=== PATIENT | female | born 1985 | race Caucasian/White ===

== ENCOUNTER 2017-02-01 18:17 | Emergency (ER) | payer BC, OTHER ==
[~2017-02-01] VITALS: Ht 160 cm; Wt 113.5 kg
[2017-02-01 18:22] VITALS: TEMP 37.1; Ht 160 cm; Wt 113.5 kg
[2017-02-01] MEDS ORDERED: SODIUM CHLORIDE 0.9% 1000ML 1,000 ML IV STA ×2 (18:32→18:33)
[2017-02-01 18:57] LABS: BASO % 0.1 %; BASO ABS # 0.01 K/uL (0-0.2); COMPLETE YES; EOS % 0.1 %; HEMATOCRIT 35.9 % (37-47); IG% 0.2 %; LYMPH % 17.3 %; LYMPH ABS # 1.58 K/uL (1.2-3.4); MEAN CORPUSCULAR HGB CONC 34.5 g/dl (32-36); MEAN PLATELET VOLUME 9.5 fL (7.4-10.4); MONO % 4.9 %; NEUT % 77.4 %; PLATELET COUNT 219 K/uL (130-400); RED BLOOD COUNT 4.43 M/uL (4.2-5.4); WHITE BLOOD COUNT 9.12 K/uL (4.8-10.8)
[2017-02-01] MEDS ORDERED: MONT1TAB3 PO (19:12)
[2017-02-01] MEDS ORDERED: CLR10 PO (19:13)
[2017-02-01] MEDS ORDERED: PRENTAB26 PO (19:14)
[2017-02-01] MEDS ORDERED: DIPH25CA65 PO (19:15)
[2017-02-01 19:32] LABS: BUN/CREATININE RATIO 8.5 (10-20); CALCIUM 8.9 mg/dl (8.5-10.1); CREATININE 0.6 mg/dl (0.60-1.20); POTASSIUM 3.6 mmol/L (3.5-5.1)
[2017-02-01 19:35] LABS: ALB/GLOB RATIO 0.8 (0.9-2)
[2017-02-01 19:47] LABS: URINE APPEARANCE CLOUDY (CLEAR); URINE BILIRUBIN NEG (NEG); URINE COLOR YELLOW; URINE EPITHELIAL CELL AUTO >30 /lpf (0-5); URINE NITRITE NEG (NEG); URINE PH 6.5 (4.5-7.5); URINE SPECIFIC GRAVITY 1.026 (1.000-1.030); UROBILINOGEN NEG (NEG); ZZUR CULT IF INDIC CLEAN CATCH YES
[2017-02-01 19:49] LABS: MANUAL MICROSCOPIC REQUIRED? NO; REVIEW REQ? NO
--- NOTE | 2017-02-01 20:32 | EMERGENCY ROOM VISIT NOTE ---
History Report prepared by [place]an: Stephie Patel Under the Supervision of: Dr. Belem Crain D.O. First contact with patient: 18:23 Chief Complaint: NAUSEA Stated Complaint: NAUSEATED, POSS. DEHYDRATION, 13 WKS History of Present Illness The patient is a 31 year old female who presents to the Emergency Room with complaints of worsening nausea symptoms that started over a week ago. The patient states that she is 13 weeks in to her 3rd . She notes that over the last 2-3 weeks she has been vomiting a lot more than normal. The patient reports that she breaks out into a sweat when she is vomiting. The patient states that she has been unable to "keep things down" over the last couple of days. She notes that she was nauseous with her first two pregnancies but not similar to what she is experiencing now. She also reports that she has been having diarrhea and abdominal cramping over the past week. The patient denies having a fever, cough, chills, or vaginal bleeding or discharge. Source of History: patient Onset: over a week ago Position: other (global) Symptom Intensity: mild Quality: other (nausea) Timing: worsening Associated Symptoms: + abdominal pain, + diarrhea, No fevers, No chills, No cough Review of Systems Pt denies headache, change in vision, fevers, chest pain, shortness of breath, pain with urination, and melena. Past Medical & Surgical Medical Problems: (1) related nausea and vomiting, antepartum Social History Smoking Status: Never Smoker Smokeless Tobacco Use: No Alcohol Use: none Drug Use: none Marital Status: Housing Status: lives with family Occupation Status: employed Current/Historical Medications Scheduled Doxylamine-Pyridoxine (Diclegis), 2 TABS PO HS Loratadine (Claritin), 10 MG PO DAILY Montelukast Sodium (Singulair), 10 MG PO DAILY Multivit/Min/Iron/Fol Ac/Pren ( Vitamin), 1 TAB PO DAILY Scheduled PRN Diphenhydramine Hcl (Benadryl Allergy), 25 MG PO DAILY PRN for ALLERGIC REACTION Allergies Coded Allergies: Potassium (Verified Allergy, Mild, RASH, 02/01/17) Uncoded Allergies: FLU SHOT (Allergy, Mild, RASH, 02/01/17) PENICILLIN (Allergy, Mild, RASH, 02/01/17) Physical Exam Vital Signs Date Time Temp Pulse Resp B/P (MAP) Pulse Ox O2 Delivery O2 Flow Rate FiO2 02/01/17 21:33 97 20 132/70 96 02/01/17 19:52 85 17 132/84 98 Room Air 02/01/17 18:22 37.1 86 18 158/90 98 Room Air Physical Exam GENERAL: alert, well appearing, well nourished, no distress, non-toxic EYE EXAM: normal conjunctiva, PERRL and EOM's grossly intact OROPHARYNX: no exudate, no erythema, lips, buccal mucosa, and tongue normal and mucous membranes are moist NECK: supple, no nuchal rigidity, no adenopathy, non-tender LUNGS: Clear to auscultation. Normal chest wall mechanics HEART: no murmurs, S1 normal and S2 normal ABDOMEN: abdomen soft, non-tender, normo-active bowel sounds, no masses, no rebound or guarding. Fundus not palpable. BACK: Back is symmetrical on inspection and there is no deformity, no midline tenderness, no CVA tenderness. SKIN: no rashes and no bruising UPPER EXTREMITIES: upper extremities are grossly normal. LOWER EXTREMITIES: No pitting edema. NEURO EXAM: Normal sensorium, cranial nerves II-XII [grossly] intact, normal speech, no [gross] weakness of arms, no [gross] weakness of legs. [Gross sensation intact.] Medical Decision & Procedures Laboratory Results 02/01/17 18:41 Red Blood Count 4.43, Mean Corpuscular Volume 81.0, Mean Corpuscular Hemoglobin 28.0, Mean Corpuscular Hemoglobin Concent 34.5, Mean Platelet Volume 9.5, Neutrophils (%) (Auto) 77.4, Lymphocytes (%) (Auto) 17.3, Monocytes (%) (Auto) 4.9, Eosinophils (%) (Auto) 0.1, Basophils (%) (Auto) 0.1, Neutrophils # (Auto) 7.05, Lymphocytes # (Auto) 1.58, Monocytes # (Auto) 0.45, Eosinophils # (Auto) 0.01, Basophils # (Auto) 0.01 02/01/17 18:41 Test 02/01/17 18:41 02/01/17 19:35 White Blood Count 9.12 K/uL (4.8-10.8) Red Blood Count 4.43 M/uL (4.2-5.4) Hemoglobin 12.4 g/dL (12.0-16.0) Hematocrit 35.9 % (37-47) Mean Corpuscular Volume 81.0 fL (80-100) Mean Corpuscular Hemoglobin 28.0 pg (25-34) Mean Corpuscular Hemoglobin Concent 34.5 g/dl (32-36) Platelet Count 219 K/uL (130-400) Mean Platelet Volume 9.5 fL (7.4-10.4) Neutrophils (%) (Auto) 77.4 % Lymphocytes (%) (Auto) 17.3 % Monocytes (%) (Auto) 4.9 % Eosinophils (%) (Auto) 0.1 % Basophils (%) (Auto) 0.1 % Neutrophils # (Auto) 7.05 K/uL (1.4-6.5) Lymphocytes # (Auto) 1.58 K/uL (1.2-3.4) Monocytes # (Auto) 0.45 K/uL (0.11-0.59) Eosinophils # (Auto) 0.01 K/uL (0-0.5) Basophils # (Auto) 0.01 K/uL (0-0.2) RDW Standard Deviation 39.1 fL (36.4-46.3) RDW Coefficient of Variation 13.2 % (11.5-14.5) Immature Granulocyte % (Auto) 0.2 % Immature Granulocyte # (Auto) 0.02 K/uL (0.00-0.02) Anion Gap 11.0 mmol/L (3-11) Est Creatinine Clear Calc Drug Dose 167.8 ml/min Estimated GFR () 142.8 Estimated GFR (Non- 123.2 BUN/Creatinine Ratio 8.5 (10-20) Calcium Level 8.9 mg/dl (8.5-10.1) Total Bilirubin 0.4 mg/dl (0.2-1) Aspartate Amino Transf (AST/SGOT) 15 U/L (15-37) Alanine Aminotransferase (ALT/SGPT) 21 U/L (12-78) Alkaline Phosphatase 52 U/L (45-117) Total Protein 7.2 gm/dl (6.4-8.2) Albumin 3.3 gm/dl (3.4-5.0) Globulin 3.9 gm/dl (2.5-4.0) Albumin/Globulin Ratio 0.8 (0.9-2) Urine Color YELLOW Urine Appearance CLOUDY (CLEAR) Urine pH 6.5 (4.5-7.5) Urine Specific [place] 1.026 (1.000-1.030) Urine Protein TRACE (NEG) Urine Glucose (UA) NEG (NEG) Urine Ketones 4+ (NEG) Urine Occult Blood NEG (NEG) Urine Nitrite NEG (NEG) Urine Bilirubin NEG (NEG) Urine Urobilinogen NEG (NEG) Urine Leukocyte Esterase TRACE (NEG) Urine WBC (Auto) 5-10 /hpf (0-5) Urine RBC (Auto) 0-4 /hpf (0-4) Urine Hyaline Casts (Auto) 5-10 /lpf (0-5) Urine Epithelial Cells (Auto) >30 /lpf (0-5) Urine Bacteria (Auto) 1+ (NEG) Laboratory results per my review. Medications Administered Medications (Trade) Dose Ordered Sig/Noel Route Start Time Stop Time Status Last Admin Dose Admin Sodium Chloride 1,000 ml @ 999 mls/hr Q1H1M STAT IV 02/01/17 18:32 02/01/17 19:32 DC 02/01/17 19:04 999 MLS/HR Sodium Chloride 1,000 ml @ 999 mls/hr Q1H1M STAT IV 02/01/17 18:33 02/01/17 19:33 DC 02/01/17 19:04 999 MLS/HR Ondansetron HCl (Zofran Inj) 4 mg NOW STAT IV 02/01/17 21:06 02/01/17 21:07 DC 02/01/17 21:24 4 MG ED Course 182: The patient was evaluated in room C7. A complete history and physical exam was performed. 183: Sodium Chloride 1000 ml @ 999 mls/hr IV. 1832: Sodium Chloride 1000 ml @ 999 mls/hr IV. 1932: I performed bedside ultrasound for hearts. heart rate was 158. Single IUP. Positive movement. 2020: I reevaluated the patient at bedside and she is resting comfortably. She is hungry so we will PO challenge. 2106: The patient tolerated PO well. 2139: Upon reevaluation, the patient is feeling better. I discussed the findings and the treatment plan with the patient. She verbalizes agreement and understanding. She will be discharged home. Medical Decision Ddx: dehydration, viral syndrome, hyperemesis gravidarum, first trimester nausea & vomiting. Patient markedly improved here following IV fluids and tolerating by mouth. No evidence of occult infectious etiology. Patient's normal heart some movement on bedside ultrasound. Discussed close follow-up with [facility]. Patient written for diplegia's as a precaution. Discussed symptoms to watch and return for, she verbalized understanding was agreeable with plan. Did not feel patient warranted additional bedside imaging at this time. Presentation and exam is not strongly suggestive of biliary colic, GI bleed, perforation, diverticulitis, appendicitis, colitis, bowel obstruction. Medication Reconcilliation Current Medication List: was personally reviewed by me Blood Pressure Screening Patient's blood pressure: Normal blood pressure Impression Primary Impression: Nausea & vomiting Additional Impression: Scribe Attestation The scribe's documentation has been prepared under my direction and personally reviewed by me in its entirety. I confirm that the note above accurately reflects all work, treatment, procedures, and medical decision making performed by me. Departure Information Dispostion Home / Self-Care Prescriptions Doxylamine-Pyridoxine (DICLEGIS) 1 Tab Tab 2 TABS PO HS for Nausea, #30 TAB Prov: Belem Crain, DO 02/01/17 Referrals No Doctor, Assigned (PCP) Patient Instructions My [facility] Additional Instructions Please follow up with [facility] as a precaution. You may take for nausea medications as provided. Please try to sip clear liquids at frequent intervals to stay well-hydrated and eat small meals at frequent intervals until you're appetite returns. If you develop abdominal pain or increased cramping, develop vaginal discharge or bleeding, develop fevers or chills, cough, trouble breathing, dizziness, or you have any other new concerns, please return the emergency room. Problem Qualifiers Primary Impression: Nausea & vomiting Vomiting type: unspecified Vomiting Intractability: non-intractable Qualified Codes: R11.2 - Nausea with vomiting, unspecified Additional Impression: Weeks of gestation: 13 weeks Qualified Codes: Z3A.13 - 13 weeks gestation of
[2017-02-01] MEDS ORDERED: DOXY30TA PO (21:01)
[2017-02-01] MEDS ORDERED: ONDANSETRON INJ 2 MG/ML 2 ML VIAL IV STA (21:06)
[2017-02-01 21:33] VITALS: BP 132/70; PULSE 97; O2SAT 96
== END 2017-02-01 21:35 | disposition home or self-care (01) ==
LOC: C.EDB 18:19 → C.EDC 21:35
DX: R11.2 Nausea with vomiting, unspecified (principal); Z33.1 Pregnant state, incidental; R10.9 Unspecified abdominal pain; R19.7 Diarrhea, unspecified

== ENCOUNTER → 2017-03-30 | Outpatient (CLI) | payer BC, OTHER ==
[~2017-03-30] MED LIST: CLR10 PO; DIPH25CA65 PO; DOXY30TA PO; MONT1TAB3 PO; PRENTAB26 PO
--- NOTE | 2017-04-02 06:58 | CODING QUERY NO DIAGNOSIS ---
TREATMENT RENDERED WITHOUT A DIAGNOSIS To promote full compliance with coding requirements relating to patient care, physician participation is requested in all cases of rhinologist uncertainty. Please assist us with providing a diagnosis/symptom for the test(s) below: A diagnosis/symptom was not documented on your Order. A valid diagnosis/symptom is required to bill all insurances. Please remember that we are unable to code a diagnosis of rule out, probable, possible, questionable, or suspected. Tests that require a diagnosis: * Echocardiogram DIAGNOSIS: Provider Signature: Date: Thank you Erica Zuñiga [employer] Once completed, please kindly fax back to [phone] For questions please call [phone]
== END | disposition home or self-care (01) ==
LOC: C.CPL 14:20
PROVIDERS: ATTEND Obstetrics & Gynecology Maternal & Fetal Medicine
DX: O28.3 Abnormal ultrasonic finding on antenatal screening of mother (principal); Z3A.21 21 weeks gestation of pregnancy

== ENCOUNTER 2017-07-19 11:31 | Outpatient (CLI) | payer BC, OTHER ==
[~2017-07-19] VITALS: Ht 161.3 cm; Wt 118.2 kg
[2017-07-19] MEDS ORDERED: ONDANSETRON 4 MG TAB PO PRN (12:15)
[2017-07-19] MEDS ORDERED: ACETAMINOPHEN 325 MG TAB PO PRN (12:15)
[2017-07-19 12:24] LABS: BASO % 0.1 %; BASO ABS # 0.01 K/uL (0-0.2); EOS % 0.7 %; EOS ABS # 0.06 K/uL (0-0.5); HEMATOCRIT 31.9 % (37-47); HEMOGLOBIN 10.9 g/dL (12.0-16.0); IG# 0.05 K/uL (0.00-0.02); LYMPH % 17.4 %; LYMPH ABS # 1.55 K/uL (1.2-3.4); MEAN CORPUSCULAR HGB CONC 34.2 g/dl (32-36); MEAN PLATELET VOLUME 9.8 fL (7.4-10.4); MONO % 6.5 %; MONO ABS # 0.58 K/uL (0.11-0.59); NEUT % 74.7 %; NEUT ABS # 6.67 K/uL (1.4-6.5); PLATELET COUNT 227 K/uL (130-400); RED CELL DISTRIBUTION WIDTH CV 13.9 % (11.5-14.5); RED CELL DISTRIBUTION WIDTH SD 39.5 fL (36.4-46.3); WHITE BLOOD COUNT 8.92 K/uL (4.8-10.8)
[2017-07-19] MEDS ORDERED: FERR1TAB23 (12:36)
[2017-07-19] MEDS ORDERED: MOME1AER5 INH (12:36)
[2017-07-19] MEDS ORDERED: VNTHFA/IN INH (12:38)
[2017-07-19 12:41] VITALS: Ht 161.3 cm; Wt 118.2 kg
[2017-07-19 13:27] LABS: ALBUMIN 2.5 gm/dl (3.4-5.0); CALCIUM 8.5 mg/dl (8.5-10.1); CREATININE 0.71 mg/dl (0.60-1.20); POTASSIUM 3.6 mmol/L (3.5-5.1); TOTAL PROTEIN 6.3 gm/dl (6.4-8.2)
--- NOTE | 2017-07-19 16:12 | Discharge Instructions ---
Discharge Instructions Date of Service Jul 19, 2017. Admission Reason for Admission: R/O Pih Discharge Discharge Diagnosis / Problem: Gestational Hypertenstion Discharge Goals Goal(s): Continuing OB care Activity Recommendations Activity Limitations: as noted below SPECIAL CARE INSTRUCTIONS: Call Doctor if: * Regular contractions every 5 minutes or greater than contractions in one hour. * Bleeding * Water breaks or is leaking * Decreased movement * Fever >100.4 degrees F * Pain not relieved by routine measures or pain medication ordered. FOLLOW UP VISIT: Return to Labor and Delivery on for /call for appointment time . Follow-up Visit with: When: . Current Hospital Diet Patient's current hospital diet: Discharge Diet Recommended Diet: Regular Diet Pending Studies Studies pending at discharge: yes List of pending studies: 24 hour urine collection Work Instructions Return To Work: after follow-up (Recommended to be off work till delivery and 6 -8 weeks depending of tyep of delivery) Medical Emergencies . Who to Call and When: Medical Emergencies: If at any time you feel your situation is an emergency, please call 911 immediately. . Non-Emergent Contact Non-Emergency issues call your: Specialist Call Non-Emergent contact if: you have a fever, temperature is above 100.5, your pain is not controlled . . "Provider Documentation" section prepared by Jhony Cabello. .
== END 2017-07-19 16:45 | disposition home or self-care (01) ==
LOC: C.OPB 11:31 → C.LD 11:32 → C.OPB 16:45
PROVIDERS: ATTEND Obstetrics & Gynecology
DX: O13.3 Gestational [pregnancy-induced] hypertension without significant proteinuria, third trimester (principal); O99.213 Obesity complicating pregnancy, third trimester; E66.9 Obesity, unspecified; Z3A.37 37 weeks gestation of pregnancy

== ENCOUNTER 2017-07-26 11:13 | Outpatient (CLI) | payer BC, OTHER ==
[~2017-07-26] VITALS: Ht 161.3 cm; Wt 118.6 kg
[~2017-07-26 11:13] MED LIST changes: -CLR10 PO; -DIPH25CA65 PO; -DOXY30TA PO; +FERR1TAB23; +MOME1AER5 INH; +VNTHFA/IN INH
[2017-07-26 11:40] VITALS: Ht 161.3 cm; Wt 118.6 kg
[2017-07-26] MEDS ORDERED: PEDICHW50 PO (11:44)
--- NOTE | 2017-07-26 13:30 | Progress Note ---
Progress Note Date of Service Jul 26, 2017. Progress Note Outpatient Note 32 F P2002 at 38.5 weeks seen from office for elevated BP. BP 1146/71. trace protein. FHT Cat 1. Will bring in for induction of labor for Class 3 obesity and gestational hypertension .
== END 2017-07-26 13:30 | disposition home or self-care (01) ==
LOC: C.OPB 11:13 → C.LD 11:14 → C.OPB 13:30
PROVIDERS: ATTEND Obstetrics & Gynecology
DX: O13.2 Gestational [pregnancy-induced] hypertension without significant proteinuria, second trimester (principal); O99.213 Obesity complicating pregnancy, third trimester; E66.9 Obesity, unspecified; Z3A.38 38 weeks gestation of pregnancy; Z68.42 Body mass index [BMI] 45.0-49.9, adult

== ENCOUNTER 2017-07-29 06:28 | Inpatient (IN) | payer BC, OTHER ==
[~2017-07-29] VITALS: Ht 160 cm; Wt 118.2 kg
[~2017-07-29 06:28] MED LIST changes: +PEDICHW50 PO; -PRENTAB26 PO
[2017-07-29] MEDS ORDERED: LACTATED RINGER'S 1000ML 1,000 ML IV PRN (08:04)
[2017-07-29] MEDS ORDERED: ONDANSETRON INJ 2 MG/ML 2 ML VIAL IV PRN ×2 (08:15→23:15)
[2017-07-29] MEDS ORDERED: MISOPROSTOL 25 MCG TAB PV ONE ×2 (08:15→13:00)
[2017-07-29 08:25] VITALS: Ht 160 cm; Wt 118.2 kg
[2017-07-29 08:36] LABS: HEMATOCRIT 30.7 % (37-47); HEMOGLOBIN 10.2 g/dL (12.0-16.0); MEAN CELL VOLUME 78.7 fL (80-100); MEAN CORPUSCULAR HEMOGLOBIN 26.2 pg (25-34); MEAN CORPUSCULAR HGB CONC 33.2 g/dl (32-36); MEAN PLATELET VOLUME 9.7 fL (7.4-10.4); PLATELET COUNT 230 K/uL (130-400); RED CELL DISTRIBUTION WIDTH CV 14.1 % (11.5-14.5); RED CELL DISTRIBUTION WIDTH SD 40.2 fL (36.4-46.3); WHITE BLOOD COUNT 7.77 K/uL (4.8-10.8)
[2017-07-29] MEDS ORDERED: VANCOMYCIN IV 1,000 MG in SODIUM CHLORIDE 0.9% 250ML 250 ML IV ONE (09:00)
[2017-07-29] MEDS ORDERED: VANCOMYCIN CONSULT ACTIVE PRN (09:00)
[2017-07-29] MEDS ORDERED: VANCOMYCIN IV 1,000 MG in SODIUM CHLORIDE 0.9% 250ML 250 ML IV PRN (09:15)
[2017-07-29] MEDS: LACTATED RINGER'S 1000ML 1,000 ML IV SCH (09:31)
[2017-07-29] MEDS ORDERED: MISOPROSTOL 25 MCG TAB ONE (13:00)
[2017-07-29] MEDS ORDERED: LACTATED RINGER'S 1000ML 500 ML IV PRN ×2 (17:11→23:11)
[2017-07-29] MEDS ORDERED: OXYTOCIN 30 UNITS/500ML NSS IV PRN (17:15)
[2017-07-29] MEDS ORDERED: ACETAMINOPHEN 500 MG TAB PO ONE (19:39)
[2017-07-29] MEDS ORDERED: ACETAMINOPHEN 500 MG TAB PO PRN (19:45)
[2017-07-29] MEDS ORDERED: BUPIVACAINE 0.25% 30 ML VIAL ONE (22:27)
[2017-07-29] MEDS ORDERED: EpHEDrine SULFATE INJ 50 MG/ML AMP ONE (22:27)
[2017-07-29] MEDS ORDERED: FENTANYL 2MCG/ML ROPIV 1.25MG/ML 100ML BAG EPI ONE (22:28)
[2017-07-29] MEDS ORDERED: FENTANYL CITRATE INJ 50 MCG/1 ML 2 ML VIAL ONE (22:28)
[2017-07-29] MEDS ORDERED: NALOXONE HCL INJ 1 MG in SODIUM CHLORIDE 0.9% 1000ML 1,000 ML IV PRN (23:11)
[2017-07-29] MEDS ORDERED: EpHEDrine SULFATE INJ 50 MG/ML AMP IV PRN (23:15)
[2017-07-29] MEDS ORDERED: FENTANYL 2MCG/ML ROPIV 1.25MG/ML 100ML BAG EPI PRN (23:15)
[2017-07-29] MEDS ORDERED: NALOXONE HCL INJ 0.4 MG/1 ML VIAL/CARP IV PRN (23:15)
[2017-07-29] MEDS ORDERED: DiphenhydrAMINE HCL 50 MG/ML VIAL IV PRN (23:15)
[2017-07-29] MEDS ORDERED: NALBUPHINE HCL INJ 10 MG/ML AMP IV PRN (23:15)
[2017-07-30] MEDS: LACTATED RINGER'S 1000ML 1,000 ML IV SCH (00:23)
--- NOTE | 2017-07-30 02:41 | Anesthesiology Progress Note ---
Anesthesia Progress Note Date of Service Jul 30, 2017. Progress Notes Pt stated having L sided discomfort with contractions. I pulled the epidural catheter out by 1 cm and then bolused the epidural with 5 mL of 0.125% bupivacaine. Pt's vital signs were stable and FHTs were stable throughout. Afterwards, the pt stated having much improvement in labor pains with just some discomfort near her L groin.
[2017-07-30] MEDS ORDERED: LACTATED RINGER'S 1000ML 1,000 ML IV SCH (03:56)
[2017-07-30] MEDS ORDERED: OXYTOCIN 30 UNITS/500ML NSS IV PRN (04:00)
[2017-07-30] MEDS ORDERED: HYDROCORTISONE ACETATE 25 MG SUPP PR PRN (04:00)
[2017-07-30] MEDS ORDERED: ACETAMINOPHEN 325 MG TAB PO PRN (04:00)
[2017-07-30] MEDS ORDERED: SUPERCREAM 0.870 % 15GM JAR EXT PRN (04:00)
[2017-07-30] MEDS ORDERED: LANOLIN OINT EXT PRN (04:00)
[2017-07-30] MEDS ORDERED: MEASLES, MUMPS & RUBELLA VIRUS VIAL SQ. ONE (04:00)
[2017-07-30] MEDS ORDERED: BENZOCAINE 20% AER SPR 82.5 GM CAN EXT PRN (04:00)
[2017-07-30] MEDS ORDERED: DIPHTHERIA/TETANUS/PERTUSSIS 0.5 ML SYR/VIAL IM. ONE (04:00)
[2017-07-30] MEDS ORDERED: ACETAMINOPHEN/CODEINE 300/30MG TAB PO PRN (04:00)
--- NOTE | 2017-07-30 04:02 | Vaginal Delivery Summary ---
Vaginal Delivery Summary Delivery Note live female over intact perineum JOHN with nuchal cord x 1. Apgars 7/8 weight pending. Delayed cord clamping followed by cord blood collection. No tears. EBL 200 ml. Final sponge and instrument count are correct. Mom and baby stable.
--- NOTE | 2017-07-30 06:59 | Anesthesia Procedure Note ---
Anesthesia Epidural Removal Nt Date & Time Jul 30, 2017 at 06:59 Vital Signs Pain Intensity: 7.0 Notes Mental Status: alert / awake / arousable, participated in evaluation Nausea / Vomiting: adequately controlled Pain: adequately controlled Airway Patency, RR, SpO2: stable & adequate BP & HR: stable & adequate Hydration State: stable & adequate Neuraxial Anesthesia: was administered, sensory block is resolving Anesthetic Complications: no major complications apparent, pt satisfied with anesthetic care Epidural: removed without complications, with tip intact
[2017-07-30 07:05] VITALS: BP 133/78; PULSE 76; TEMP 37.2
[2017-07-30] MEDS: PRENATAL VITAMIN TAB PO SCH (07:38)
[2017-07-30] MEDS: FERROUS SULFATE 325 MG TAB PO SCH (07:38)
[2017-07-30] MEDS: IBUPROFEN 600 MG TAB PO PRN ×2 (10:55→15:02)
[2017-07-30 11:30] VITALS: BP 144/88; PULSE 75; TEMP 36.8
[2017-07-30 15:00] VITALS: BP 126/79; PULSE 74; TEMP 36.8
[2017-07-30] MEDS ORDERED: SODIUM CHLORIDE 0.65% NA SOLN 45 ML (OCEAN) ONE (15:09)
[2017-07-30 19:50] VITALS: BP 145/85; PULSE 60; TEMP 36.9; O2SAT 96
[2017-07-31] VITALS: BP 135/83; PULSE 66; TEMP 36.5
[2017-07-31 03:50] VITALS: BP 125/76; PULSE 60; TEMP 36.5
[2017-07-31 06:24] LABS: HEMATOCRIT 28.1 % (37-47); HEMOGLOBIN 9.2 g/dL (12.0-16.0)
[2017-07-31 07:45] VITALS: BP 138/87; PULSE 65; TEMP 36.7; O2SAT 97
[2017-07-31] MEDS: FERROUS SULFATE 325 MG TAB PO SCH (08:29)
[2017-07-31] MEDS: PRENATAL VITAMIN TAB PO SCH (08:29)
[2017-07-31] MEDS: IBUPROFEN 600 MG TAB PO PRN ×3 (08:29→22:13)
--- NOTE | 2017-07-31 09:16 | OB/GYN Progress Note ---
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 Subjective conversation w/ patient, physical exam Ambulation: ambulating normally Voiding: no voiding problems Passing Gas: Yes Diet Tolerance: Regular Diet Lochia: Small Feeding Type: Breast Feeding Pain: 04/28 Notes: Doing well, no concerns. Pain well controlled. Tolerating regular diet. Ambulating without difficulty. Lochia decreasing. Objective Vital Signs Date Time Temp Pulse Resp B/P (MAP) Pulse Ox O2 Delivery O2 Flow Rate FiO2 07/31/17 03:50 36.5 60 16 125/76 (92) Room Air 07/31/17 00:00 Room Air 07/31/17 00:00 36.5 66 16 135/83 (100) Room Air 07/30/17 19:50 36.9 60 20 145/85 (105) 96 Room Air 07/30/17 15:00 36.8 74 20 126/79 (95) 07/30/17 11:30 36.8 75 20 144/88 (106) Physical Exam General Appearance: WELL-APPEARING Respiratory/Chest: chest non-tender, lungs clear Cardiovascular: regular rate, rhythm Abdomen: normal bowel sounds, soft Fundus: Firm Extremities: normal range of motion, non-tender, no calf tenderness Laboratory Results Last 24 Hours Test 07/31/17 06:08 Hemoglobin 9.2 g/dL Hematocrit 28.1 % Assessment and Plan Post- Day Number: 1 Continue Routine Care: -Continue routine care -Anticipate D/C home tomorrow
[2017-07-31 16:28] VITALS: BP 136/81; PULSE 63; TEMP 36.6; O2SAT 96
[2017-07-31] MEDS ORDERED: BISACODYL 5 MG TABEC PO SCH (20:00)
[2017-07-31 23:40] VITALS: BP 125/74; PULSE 63; TEMP 36.8; O2SAT 97
[2017-08-01] MEDS: IBUPROFEN 600 MG TAB PO PRN (06:29)
[2017-08-01] MEDS ORDERED: BISACODYL 10 MG SUPP PR PRN (07:00)
[2017-08-01 08:00] VITALS: BP 134/78; PULSE 65; TEMP 36.8; O2SAT 94
[2017-08-01] MEDS: FERROUS SULFATE 325 MG TAB PO SCH (08:16)
[2017-08-01] MEDS: PRENATAL VITAMIN TAB PO SCH (08:16)
--- NOTE | 2017-08-01 10:45 | Discharge Instructions ---
Discharge Instructions Date of Service Aug 01, 2017. Admission Reason for Admission: Induction Discharge Discharge Diagnosis / Problem: Vaginal delivery Discharge Goals Goal(s): Routine recovery after delivery Medications Continue Dispensed Medications: supercream, dermaplast, tucks, lansinoh Activity Recommendations Activity Limitations: per Instructions/Follow-up section . Instructions / Follow-Up Instructions / Follow-Up ACTIVITY RECOMMENDATIONS: * Gradual return to full activity over the next 2-3 weeks. * No lifting - nothing heavier than baby over the next 2-3 weeks. * Do not engage in vigorous exercise, sexual activity or sports until cleared by your physician. * Do not drive or operate any motorized equipment until cleared by your physician. * You may shower/bathe daily. BREAST CARE: If you are not breast feeding: * Wear a supportive bra 24 hours a day for one to two weeks. * Avoid stimulating your breasts and nipples as much as possible during the first few weeks after delivery. * When taking a shower, have the warm water hit your back, not breasts. * When your breasts feel full, apply ice packs. Usually three to four times a day helps ease the discomfort. * Take a mild pain medication (Tylenol/Motrin) when you are uncomfortable. If breast feeding: * Use breast milk to lubricate nipples. Lansinoh cream may be used for sore nipples. You do not need to remove cream prior to breast feeding. If using a different brand of cream, check the label for directions regarding removal of cream prior to nursing. * Wear a supportive bra. * If having problems with breasts or breast feeding, call a mental health consultant or your health care provider. EPISIOTOMY CARE: After delivery, if you have an episiotomy (stitches), the following steps will ease discomfort and aid healing. * For the first 24 hours after delivery, place ice packs next to your episiotomy to help reduce swelling. * After the first 24 hour-period, sitz baths, either portable or in the tub, are suggested. A shower with a shower arm sprayed over the episiotomy may be comforting. * Diane care should be done after each voiding and bowel movement. Squirt warm water from a plastic bottle over the perineum (region of the body between the anus and urinary opening) and pat dry. * Use Dermoplast to ease discomfort. Shake container. [place] directly over the episiotomy. * Place a Tucks on a clean sanitary pad next to your episiotomy. OVER THE COUNTER MEDICATION: * For discomfort or pain, you may use Acetaminophen (Tylenol), Ibuprofen (Advil ), or Naproxen (Aleve) following the package directions. * For constipation you may use Colace following the package directions. SPECIAL CARE INSTRUCTIONS: When you are discharged from the hospital, it is important for you to follow the instructions listed below: * During the first week at home, you should be able to care for yourself and your baby. In addition, the usual light household activities are encouraged. * Limit your activities to the way you feel. Do not try to clean the house or move furniture. Be sensible. * If you actively engage in sports and have done so up until the time of your delivery, you may resume these activities as soon as you feel able. This may take up to one month or even longer. Use good judgment. * Continue to take your vitamins for at least six weeks after the of your baby. * Your diet need not be limited unless you were on a special diet before your delivery. Breast-feeding mothers need around 2500 calories per day and at least 64-80 ounces of fluid per day (8 to 10 glasses). * You should eat foods from the four major food groups. Crash diets or fad diets are to be avoided. Eating lean meats, fresh fruits and vegetables, low-fat dairy products, high fiber foods and a regular exercise program, will help you get back to your pre- weight without putting your health at risk. * Constipation is sometimes a problem after delivery. Take a mild laxative as needed. If breast feeding, Milk of Magnesia is acceptable to use. You may use a suppository or Fleets enema if no episiotomy. * A daily shower or tub bath is suggested. Be sure to thoroughly and gently dry the perineum. * A bloody vaginal discharge will usually continue until around four weeks post . A small amount of bleeding may continue for as long as six weeks. Vaginal discharge changes from the bright red bleeding after delivery to pink then brownish and finally yellowish-pink before becoming white and disappearing. * Bleeding may increase with activity. Your first period may come in 4-8 weeks. If you are breast feeding, your period may be delayed even longer. * [place] (sex) can begin whenever both you and your partner feel comfortable and do not have any form of genital infection. It is recommended that you wait until after your return appointment and discuss with your physician. If you have questions, please talk to your health care practitioner. A condom should be used to prevent infection and . * Foreplay, gentle intercourse and lubrication is very important the first several times to prevent pain. A water-based lubricant such as K-Y jelly or Astroglide may be used. * Tampons may be used six weeks after delivery. * Douching should be avoided for 6 weeks after delivery. * If you have RH negative blood and your baby is RH positive, you will receive RHOGAM by injection prior to discharge. The nurse will give you a card to keep with you that has the date and place that you received RHOGAM after delivery. * During your care, you had a Rubella screen done to check for the presence of rubella antibodies in your blood. If your test was negative, you will receive a Rubella vaccine prior to discharge. This vaccine may cause a fever, soreness at the injection site and flu-like symptoms. If these symptoms persist, notify your health care practitioner. is not advised for three months after a Rubella vaccine. There is a higher chance of having a baby with defects if conceived within three months of getting the vaccine. * If you were discharged 24 hours from delivery or before 48 hours: Visiting nurses will come to your home 48 hours after discharge to assess you and your baby. The visiting nurse will meet with you while you are in the hospital to arrange a time and get directions to your home. * Verbalizes understanding of car seat law as reviewed with patient nursing. * Car Seat hand-out given and reviewed with patient by nursing. * Shaken baby information reviewed with patient by nursing. Call you doctor if: * Heavy bleeding (saturating several pads an hour) or passing clots the size of your fist. * A fever >101 degrees F (38.3 degrees C) on two occasions four hours apart and/or chills. * Unusual pain in the pelvic or vaginal areas. * "Baby Blues" lasting longer than two weeks. If you have any questions or concerns, call your health care practitioner at . FOLLOW-UP VISIT: * Please call the office at to schedule a 6 week examination. It is important you keep this appointment. * It is important for you to make arrangements for either yearly or twice yearly check-ups thereafter. Current Hospital Diet Patient's current hospital diet: Regular OB Diet Discharge Diet Recommended Diet: Regular OB Diet Pending Studies Studies pending at discharge: no Medical Emergencies . Who to Call and When: Medical Emergencies: If at any time you feel your situation is an emergency, please call 911 immediately. . Non-Emergent Contact Non-Emergency issues call your: Primary Care Provider, Metals Sales Representative . . "Provider Documentation" section prepared by Sarabjit Staples. .
--- NOTE | 2017-08-01 10:46 | OB/GYN Progress Note ---
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 Subjective conversation w/ patient, physical exam Ambulation: ambulating normally Voiding: no voiding problems Passing Gas: Yes Diet Tolerance: Regular Diet Lochia: Small Feeding Type: Breast Feeding Pain: 2/10 Notes: Doing well, no concerns. Would like to go home today. Objective Vital Signs Date Time Temp Pulse Resp B/P (MAP) Pulse Ox O2 Delivery O2 Flow Rate FiO2 08/01/17 08:00 36.8 65 16 134/78 (96) 94 Room Air 08/01/17 08:00 94 Room Air 07/31/17 23:40 97 Room Air 07/31/17 23:40 36.8 63 20 125/74 (91) 97 Room Air 07/31/17 16:28 36.6 63 20 136/81 (99) 96 Room Air 07/31/17 16:28 96 Room Air Physical Exam General Appearance: WELL-APPEARING Respiratory/Chest: chest non-tender, lungs clear Cardiovascular: regular rate, rhythm Abdomen: normal bowel sounds, soft Fundus: Firm Extremities: normal range of motion, non-tender, no calf tenderness Assessment and Plan Post- Day Number: 2 Continue Routine Care: -D/C home today -F/U in 6 weeks.
[2017-08-01 12:00] VITALS: BP_DIAS 78; PULSE 65; TEMP 36.8
== END 2017-08-01 12:30 | disposition home or self-care (01) | DRG 775 ==
LOC: C.LD 06:28 → C.OBG 07-30 06:30
PROVIDERS: ADMIT Obstetrics & Gynecology; ATTEND Obstetrics & Gynecology
PROC: 10E0XZZ Delivery of Products of Conception, External Approach (ICD-10-PCS; principal; 2017-07-29)
PROC: 3E0P7GC Introduction of Other Therapeutic Substance into Female Reproductive, Via Natural or Artificial Opening (ICD-10-PCS; principal; 2017-07-29)
DX: O69.81X0 Labor and delivery complicated by cord around neck, without compression, not applicable or unspecified (principal); Z68.41 Body mass index [BMI] 40.0-44.9, adult; O99.824 Streptococcus B carrier state complicating childbirth; O99.214 Obesity complicating childbirth; Z3A.39 39 weeks gestation of pregnancy; Z37.0 Single live birth

== ENCOUNTER 2019-08-15 07:29 | Inpatient (IN) ==
[2019-08-15] MEDS ORDERED: DINOPROSTONE 10 MG INSERT PV ONE (08:04)
[2019-08-15] MEDS ORDERED: OXYTOCIN 30 UNITS/500 ML BAG IV PRN ×3 (08:04→23:00)
[2019-08-15] MEDS ORDERED: VANCOMYCIN HCL 1,000 MG in SODIUM CHLORIDE 0.9% 250 ML IV SCH (08:15)
--- NOTE | 2019-08-15 08:21 | History & Physical Report ---
Date of Service August 15, 2019 Assessment & Plan (1) Obesity affecting in third trimester, antepartum: 34 yo at 40.2 wks with Class III Obesity, GBS+, EFW 3806 gr per yesterday US VSS Afebrile FHR reassuring Plan to admit, monitor, labs, cervical ripening with Cervidil, Vancomycin for GBS (2) Post-term , 40-42 weeks of gestation: History of Present Illness Primary Care Provider: Demetrice Flaherty Patient is a 34 yo at 40.2 wks who is scheduled for IOL for Class III obesity and postdates No complaints No ctxs/ LOF/VB/ COLMENARES/ change in vision/ Fever/ chills +FM's Her has been complicated by 1) Class III Obesity 2) LGA at 32 wks, EFW at 90th ile, repeat US yesterday showed 3806 gr, discussed with her increased risk of shoulder dystocia with LGA, ACOG recommendation of C section if EFW is at or above 5000 gr, she decided for trial of IOL, 3) GBS+ 4) Asthma 5) Rh negative Allergies Allergy/AdvReac Type Severity Reaction Status Date / Time Penicillins Allergy Mild rash Verified 08/15/19 08:06 potassium Allergy Mild RASH Verified 07/29/17 08:22 Flu Virus Vaccine Allergy Mild rash Uncoded 07/29/17 23:17 Home Medications Home Medications Medication Instructions Recorded Confirmed Type MONTELUKAST SODIUM (SINGULAIR) 10 mg PO DAILY #0 tab 02/01/17 History ALBUTEROL HFA (VENTOLIN HFA) 2 puff INHALATION PRN #1 inhaler 07/19/17 History Mometasone Furoate (Inhalation 2 puff INHALATION BID #0 07/19/17 History (Asmanex Hfa) PNV cmb#95-ferrous fumarate-FA 1 tab PO DAILY 08/15/19 08/15/19 History [] cholecalciferol (vitamin D3) 50 mcg PO DAILY 08/15/19 08/15/19 History [Vitamin D3] diphenhydramine HCl [Benadryl] 25 mg PO HS 08/15/19 08/15/19 History loratadine [Claritin] 10 mg PO DAILY 08/15/19 08/15/19 History sertraline [Zoloft] 100 mg PO DAILY 08/15/19 08/15/19 History Patient History Medical History Asthma Depression Zoloft Elevated blood pressure affecting in third trimester, antepartum Gestational hypertension w/o significant proteinuria in 3rd trimester related nausea and vomiting, antepartum Thyroid nodule Benign Surgical History No pertinent past surgical history [place] teeth extracted Family History Other No pertinent family history in first degree relatives Social History Preferred Language: Armenian Communication Ability: Effective Beliefs That Will Affect Care: None marital status: Current Living Situation: Spouse Current Living Situation Comment: Lives with and children Other Information That Helps Us Care for You: No Feels Safe at Home: Yes Safety Concerns: Feels Safe At This Time Smoking Status: Never smoker Do You Dip or Chew Tobacco: No ; Hx Alcohol Use: No Hx Substance Use: No OB History 3 's, 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
[2019-08-15 08:31] LABS: Hematocrit (blood only) 34.4 % (37-47); Hemoglobin 11.6 g/dL (12.0-16.0); Mean Corpuscular Hemoglobin 28.5 pg (25-34); Mean Corpuscular Volume 84.5 fL (80-100); Mean Platelet Volume 10.3 fL (7.4-10.4); Platelet Count 189 K/uL (130-400); RDW Coefficient of Variation 14.3 % (11.5-14.5); RDW Standard Deviation 43.8 fL (36.4-46.3); Red Blood Count 4.07 M/uL (4.2-5.4); White Blood Count 8.64 K/uL (4.8-10.8)
[2019-08-15 08:32] LABS: Mean Corpuscular Hgb Conc 33.7 g/dL (32-36)
[2019-08-15] MEDS ORDERED: VANCOMYCIN HCL 2,500 MG in SODIUM CHLORIDE 0.9% 500 ML IV ONE (08:45)
[2019-08-15] MEDS: LACTATED RINGER'S 1,000 ML IV PRN ×2 (08:53→18:07)
[2019-08-15 08:54] LABS: Albumin Level 2.6 gm/dl (3.4-5.0); BUN Creatinine Ratio 12.1 (10-20); Calcium 9.4 mg/dl (8.5-10.1); Creatinine Clr Calc Pharmacy 133.9 ml/min; Est GFR (African American) 120.3; Est GFR (Non-African American) 103.8; Potassium 3.6 mmol/L (3.5-5.1)
[2019-08-15 08:57] LABS: Albumin Globulin Ratio 0.7 (0.9-2); Bilirubin,Total 0.2 mg/dl (0.2-1); Globulin 3.9 gm/dl (2.5-4.0); Total Protein 6.5 gm/dl (6.4-8.2)
[2019-08-15] MEDS ORDERED: VANCOMYCIN CONSULT ACTIVE PRN (09:31)
[2019-08-15] MEDS ORDERED: BUTORPHANOL TARTRATE 1 MG/ML VIAL IV PRN (09:38)
[2019-08-15] MEDS ORDERED: CALCIUM CARBONATE 500 MG CHEWABLE TAB PO PRN (10:56)
[2019-08-15] MEDS: ACETAMINOPHEN 325 MG TAB PO PRN ×2 (11:10→18:46)
--- NOTE | 2019-08-15 13:38 | Obstetrical Progress Note ---
Date of Service August 15, 2019 Assessment & Plan Admission and Anticipated Discharge Date Admission Date: August 15, 2019 Subjective Patient is reevaluated She feels mild irregular ctxs, 2/10 pain No LOF/VB +FM's FHR had been categ I Hecker: mild irregular ctxs Will continue with cervical ripening SCD's while in bed Results & Data ([facility]) Vital Signs (Past 12 Hours) Vital Signs Temp Pulse Resp BP 08/15/19 11:06 37.1 C 69 20 134/75 08/15/19 07:46 93 H 125/83 08/15/19 07:45 37.3 C 20
--- NOTE | 2019-08-15 15:12 | Pharmacy Report ---
Pharmacy Abx Initial Consult - Date of Service August 15, 2019 - Pharmacy Dosing Scope Date of Consult: 08/14 Consultation requested by: Dr. Ivory Pharmacy is consulted to initiate vancomycin IV/PO dosing therapy, order appropriate labs and adjust drug dose/frequency. - Subjective The patient is a 34 year old F admitted on 08/15/19 07:29. - Objective Height: 5 ft 4 in Weight: 117.48 kg Vital Signs (Past 12hrs): Vital Signs Temp Pulse Resp BP 08/15/19 11:06 37.1 C 69 20 134/75 08/15/19 07:46 93 H 125/83 08/15/19 07:45 37.3 C 20 Lab Results (24hrs): Laboratory Tests (24 Hours) 08/15/19 08/15/19 08:15 08:15 WBC 8.64 Creatinine 0.76 Est Cr Clr Drug Dosing 133.9 - Risk Factors for Resistance * Resident in a jail or extended-care facility * Hospitalization for 48 hours or more within the past 90 days * Current hospitalization > 5 days * Chronic dialysis within the past 30 days * Immunocompromised (chronic steroid therapy, chemotherapy, immunomodulators) * History of infection with a multidrug-resistant organism: [organism] [site of infection] [date] * Antimicrobial use within the last 90 days [include specific drugs, if known] - Assessment & Plan Assessment 34 year old F starting on vancomycin as a GBS expectant mother, vancomycin to continue until delivery. Patient has allergy to pcns and has not trialed cephalosporins. Expect elevated Vd with , however patient BMI 44 would lower Vd, expect short duration. Plan Vancomycin IV * Estimated PK Parameters: Juan F 0.59096 hr-1, t1/2 7 hr * Loading dose: 2500 mg (21.2 mg/kg) * Maintenance dose: 1500 mg IV every 17 hours * Goal trough level for 15-20 mcg/mL * Trough not currently ordered, will order if continued >24 hours Pharmacy will continue to follow and will adjust dose/frequency as necessary. Thank you.
[2019-08-15] MEDS ORDERED: VANCOMYCIN HCL 1,500 MG in SODIUM CHLORIDE 0.9% 500 ML IV SCH (17:00)
--- NOTE | 2019-08-15 17:15 | Obstetrical Progress Note ---
Date of Service August 15, 2019 Assessment & Plan Admission and Anticipated Discharge Date Admission Date: August 15, 2019 Subjective Patient is reevaluated She is getting more painful and desires epidural for pain VE: 3-4 cm/ 60%-/2 FHR categ I Rawlings: ctxs q 2-3 min Having 2nd dose of Vanco now Plan epidural, then AROM Continue to monitor Results & Data ([facility]) Vital Signs (Past 12 Hours) Vital Signs Temp Pulse Resp BP 08/15/19 15:33 75 142/81 H 08/15/19 15:31 37.2 C 20 08/15/19 11:06 37.1 C 69 20 134/75 08/15/19 07:46 93 H 125/83 08/15/19 07:45 37.3 C 20
[2019-08-15] MEDS ORDERED: BUPIVACAINE 0.25% 30 ML VIAL ONE (17:20)
[2019-08-15] MEDS ORDERED: ePHEDrine sulfate 50 MG/ML AMP ONE (17:20)
[2019-08-15] MEDS ORDERED: fentaNYL citrate 100 MCG/2 ML VIAL ONE (17:20)
[2019-08-15] MEDS ORDERED: fentaNYL 2MCG/ML ROPIV 1.25MG/ML 100 ML BAG EPI ONE (17:21)
--- NOTE | 2019-08-15 18:05 | Anesthesiology Consultation ---
Date of Service August 15, 2019 Assessment & Plan (1) Encounter for pre-operative examination: Chart Review Chart Review: Acceptable Risk for Surgery and Patient NOT seen in Pre Admission Testing Consults Requested none ASA ASA2 Proposed Anesthesia Anesthesia Type: Labor Epidural Risk / Benefits Reviewed With: PT / POA / Parent / Guardian, Accepts Plan and Informed Consent Obtained History Height/Weight Height: 5 ft 4 in Weight: 117.48 kg Allergies Allergy/AdvReac Type Severity Reaction Status Date / Time Penicillins Allergy Mild rash Verified 08/15/19 08:06 potassium Allergy Mild RASH Verified 07/29/17 08:22 Flu Virus Vaccine Allergy Mild rash Uncoded 07/29/17 23:17 Medications Home Medications Medication Instructions Recorded Confirmed Last Taken MONTELUKAST SODIUM (SINGULAIR) 10 mg PO DAILY #0 tab 02/01/17 08/15/19 08/14/19 21:00 ALBUTEROL HFA (VENTOLIN HFA) 2 puff INHALATION DAILY PRN #1 07/19/17 08/15/19 Unknown inhaler Mometasone Furoate (Inhalation 2 puff INHALATION BID #0 07/19/17 08/15/19 Unknown (Asmanex Hfa) PNV cmb#95-ferrous fumarate-FA 1 tab PO DAILY 08/15/19 08/15/19 08/14/19 21:00 [] cholecalciferol (vitamin D3) 50 mcg PO DAILY 08/15/19 08/15/19 08/14/19 21:00 [Vitamin D3] diphenhydramine HCl [Benadryl] 25 mg PO HS 08/15/19 08/15/19 08/14/19 21:00 loratadine [Claritin] 10 mg PO DAILY 08/15/19 08/15/19 08/14/19 21:00 sertraline [Zoloft] 100 mg PO DAILY 08/15/19 08/15/19 08/14/19 21:00 Active Medications Generic Name Dose Route Start Last Admin Trade Name Freq PRN Reason Stop Dose Admin Acetaminophen 650 mg 08/15/19 10:56 08/15/19 11:10 Tylenol PO 09/14/19 10:55 650 mg Q4H PRN Administration Headache Lactated Ringer's 1,000 mls @ 150 mls/hr 08/15/19 08:04 08/15/19 17:12 Lr IV 08/17/19 08:03 999 mls/hr .Q6H40M PRN Infusion L&D Protocol Protocol Vancomycin HCl 1,500 mg/ 530 mls @ 200 mls/hr 08/15/19 17:00 08/15/19 16:53 Sodium Chloride IV 08/25/19 16:59 200 mls/hr Q8H GABRIELA Administration NPO Date Last Intake of Fluids: 08/15/19 Time Last Intake of Fluids: 12:00 Date Last Intake of Solids: 08/15/19 Time Last Intake of Solids: 04:30 Past Medical History Medical History Asthma Depression Zoloft Elevated blood pressure affecting in third trimester, antepartum Gestational hypertension w/o significant proteinuria in 3rd trimester related nausea and vomiting, antepartum Thyroid nodule Benign Exercise / Class Metabolic Activity II 4-5 Yardwork/Stairs/Walk up hill Past Family History Family History Other No pertinent family history in first degree relatives Past Surgical History Surgical History No pertinent past surgical history [place] teeth extracted Past Anesthesia History No Hx of Anesthesia Complications and No Family Hx of Anesthesia Complications History of PONV No Hx of PONV and No Hx of Motion Sickness Social History Smoking Status: Never smoker Do You Dip or Chew Tobacco: No Hx Alcohol Use: No Hx Substance Use: No Physical Exam Vital Signs Last Vital Signs Temp 37.2 C 08/15/19 15:31 Pulse 75 08/15/19 18:02 Resp 20 08/15/19 15:31 BP 131/73 08/15/19 18:02 Pulse Ox 96 08/15/19 17:58 Constitutional + obese ENMT Mouth: no dentition abnormality Thyromental Distance: > or= 3.5 Finger Breadths Mallampati Class: II Neck normal visual inspection Respiratory normal respiratory effort Auscultation: lungs clear to auscultation bilaterally Cardiovascular Rate/Rhythm: regular rate and regular rhythm Psychiatric Orientation: alert Testing Laboratory Results 08/15/19 08:15 08/15/19 08:15 Blood Type A Negative 08/15/19 08:15 Antibody Screen NEGATIVE 08/15/19 08:15
[2019-08-15] MEDS ORDERED: NALBUPHINE HCL INJ 10 MG/ML AMP IV PRN (18:06)
[2019-08-15] MEDS ORDERED: ePHEDrine sulfate 50 MG/ML AMP IV PRN (18:06)
[2019-08-15] MEDS ORDERED: NALOXONE HCL 1 MG in SODIUM CHLORIDE 0.9% 1000ML 1,000 ML IV PRN (18:06)
[2019-08-15] MEDS ORDERED: NALOXONE HCL 0.4 MG/1 ML VIAL/CARP IV PRN (18:06)
[2019-08-15] MEDS ORDERED: DiphenhydrAMINE HCL 50 MG/ML VIAL IV PRN (18:06)
[2019-08-15] MEDS ORDERED: ONDANSETRON INJ 2 MG/ML 2 ML VIAL IV PRN (18:06)
[2019-08-15] MEDS ORDERED: PROMETHAZINE HCL 6.25 MG in SODIUM CHLORIDE 0.9% 50 ML IV PRN (18:06)
[2019-08-15] MEDS ORDERED: fentaNYL 2MCG/ML ROPIV 1.25MG/ML 100 ML BAG EPI PRN (18:06)
--- NOTE | 2019-08-15 19:38 | Obstetrical Progress Note ---
Date of Service August 15, 2019 Assessment & Plan Admission and Anticipated Discharge Date Admission Date: August 15, 2019 Subjective Patient is reevaluated She is comfortable now, received epidural for pain VE: 4-5 cm/ 70%-/2, AROM'ed clear fluid, Cervidil is removed FHR categ I Gordon: ctxs q 2-3 min Continue to monitor Results & Data ([facility]) Vital Signs (Past 12 Hours) Vital Signs Temp Pulse Resp BP Pulse Ox 08/15/19 19:33 85 98 08/15/19 19:28 74 96 08/15/19 19:27 83 122/67 08/15/19 19:23 79 95 08/15/19 19:20 84 94 08/15/19 19:18 74 95 08/15/19 19:13 70 97 08/15/19 19:12 67 116/63 08/15/19 19:10 37.2 C 18 08/15/19 19:08 81 96 08/15/19 19:06 67 121/66 08/15/19 19:03 72 96 08/15/19 19:01 75 120/68 08/15/19 18:58 72 96 08/15/19 18:57 67 125/65 08/15/19 18:53 71 96 08/15/19 18:51 73 124/68 08/15/19 18:48 76 97 08/15/19 18:46 78 131/69 08/15/19 18:43 74 99 08/15/19 18:42 73 133/69 08/15/19 18:38 69 97 08/15/19 18:36 75 133/68 08/15/19 18:33 73 130/63 97 08/15/19 18:28 73 97 08/15/19 18:26 74 125/69 08/15/19 18:23 71 97 08/15/19 18:21 72 130/62 08/15/19 18:18 74 96 08/15/19 18:14 74 20 135/68 08/15/19 18:13 83 95 08/15/19 18:12 61 20 134/70 08/15/19 18:10 71 134/72 08/15/19 18:08 70 20 138/75 97 08/15/19 18:07 37.3 C 20 08/15/19 18:06 72 20 138/75 08/15/19 18:05 80 137/77 08/15/19 18:03 77 96 08/15/19 18:02 75 18 131/73 08/15/19 18:01 80 157/80 H 08/15/19 17:58 80 18 176/87 H 96 08/15/19 17:57 82 150/100 H 94 08/15/19 17:55 18 144/91 H 08/15/19 17:53 83 18 162/94 H 96 08/15/19 17:48 90 98 08/15/19 17:43 96 H 95 08/15/19 17:38 71 98 08/15/19 17:33 72 97 08/15/19 17:31 75 144/91 H 08/15/19 17:28 80 96 08/15/19 17:23 73 95 08/15/19 17:18 73 99 08/15/19 17:13 80 97 08/15/19 15:33 75 142/81 H 08/15/19 15:31 37.2 C 20 08/15/19 11:06 37.1 C 69 20 134/75 08/15/19 07:46 93 H 125/83 08/15/19 07:45 37.3 C 20
[2019-08-15] MEDS ORDERED: DIPHTHERIA/TETANUS/PERTUSSIS 0.5 ML SYR/VIAL IM ONE (23:00)
[2019-08-15] MEDS ORDERED: SUPERCREAM 0.870% 15 GM JAR EXT PRN (23:00)
[2019-08-15] MEDS ORDERED: ACETAMINOPHEN 325 MG TAB PO PRN (23:00)
[2019-08-15] MEDS ORDERED: HYDROCORTISONE ACETATE 25 MG SUPP PR PRN (23:00)
[2019-08-15] MEDS ORDERED: BENZOCAINE 20% AER SPR 82.5 GM CAN EXT PRN (23:00)
[2019-08-15] MEDS ORDERED: bisacodyL 10 MG SUPP PR PRN (23:00)
[2019-08-15] MEDS ORDERED: LORATADINE 10 MG TAB PO ONE (23:16)
--- NOTE | 2019-08-15 23:25 | Delivery Summary ---
DATE OF OPERATION: 08/15/2019 TIME OF DELIVERY OF BABY: 2232 hours. TIME OF DELIVERY OF PLACENTA: 2247 hours. DETAILS OF DELIVERY: The patient was found to be fully dilated and desired to push. She pushed for about 10 minutes and delivered the head without difficulty. Shoulders delivered with minimal traction. There was a nuchal cord around the neck x1 which was reduced and baby was handed off to the mother where mouth and nose were suctioned. Cord was clamped x2 and cut at 1-minute delay and cord blood was obtained and vagina and perineum were checked for lacerations. There were small first-degree lacerations on the perineum and on the upper labia superior to the urethra. Those were repaired with 3-0 Vicryl on SH needle with [id number] stitches. Excellent hemostasis was achieved. Rest of the vagina was intact and then placenta was found to be in the vagina, delivered spontaneously as intact and complete. Uterus was explored, found to be empty. Lower segment was cleared of all clots and debris. EBL was 200 mL. Fundus was firm. Mom and baby tolerated the procedure well. Sponge, lap, needle count was correct x2. Baby was a viable male , Apgars 8/8. Weight is 4127 gr. No complications happened and I was present during whole procedure. I attest to the content of the Intraoperative Record and any orders documented therein. Any exceptions are noted below. MTDD
[2019-08-15] MEDS: SERTRALINE HCL 100 MG TABLET PO SCH (23:58)
[2019-08-15] MEDS: MONTELUKAST SODIUM 10 MG TABLET PO SCH (23:58)
[2019-08-16] MEDS: IBUPROFEN 600 MG TAB PO PRN ×4 (00:30→21:03)
--- NOTE | 2019-08-16 01:48 | Anesthesia Procedure Note ---
Date of Service August 16, 2019 Anesthesia Post Epidural Note Vital Signs Vital Signs: Temp Pulse Resp BP Pulse Ox 37.1 C 92 H 18 134/70 97 08/16/19 01:00 08/16/19 01:00 08/16/19 01:00 08/16/19 01:00 08/16/19 01:00 Pain Intensity Lower Abdomen: Pain Intensity: 2 Notes Mental Status: alert / awake / arousable Nausea / Vomiting: adequately controlled Pain: adequately controlled Airway Patency, RR, SpO2: stable & adequate BP & HR: stable & adequate Hydration State: stable & adequate Neuraxial Anesthesia: was administered and sensory block is resolving Anesthetic Complications: no major complications apparent and Pt Satisfied with anesthetic care Epidural: Removed without complications and With tip intact
[2019-08-16 06:05] LABS: Hematocrit (blood only) 32.8 % (37-47); Mean Corpuscular Hemoglobin 28.6 pg (25-34); Mean Corpuscular Hgb Conc 33.5 g/dL (32-36); Mean Corpuscular Volume 85.2 fL (80-100); Mean Platelet Volume 10.2 fL (7.4-10.4); Platelet Count 168 K/uL (130-400); RDW Coefficient of Variation 14.3 % (11.5-14.5); RDW Standard Deviation 44.3 fL (36.4-46.3); Red Blood Count 3.85 M/uL (4.2-5.4); White Blood Count 10.09 K/uL (4.8-10.8)
--- NOTE | 2019-08-16 08:17 | Obstetrical Progress Note ---
Date of Service August 16, 2019 Assessment & Plan Admission and Anticipated Discharge Date Admission Date: August 15, 2019 Subjective PPD#1 doing well out of bed tolerating diet Physical Exam Constitutional: WD/WN, vitals as above comfortable abdomen soft and non- tender fundus firm no edema neg Batsheva's tent d/c in AM Results & Data ([facility]) Vital Signs (Past 12 Hours) Vital Signs Temp Pulse Pulse Resp BP BP Pulse Ox 08/16/19 04:30 37.1 C 73 18 129/87 97 08/16/19 01:00 37.1 C 92 H 18 134/70 97 08/16/19 00:46 92 H 134/70 08/16/19 00:45 37.1 C 18 08/16/19 00:31 75 135/66 08/16/19 00:16 37.2 C 74 18 139/70 08/16/19 00:01 79 140/67 08/15/19 23:47 76 18 145/70 H 08/15/19 23:31 71 18 153/89 H 08/15/19 23:17 68 18 148/86 H 08/15/19 23:01 81 18 141/70 H 08/15/19 22:48 90 96 08/15/19 22:46 37.3 C 20 141/75 H 08/15/19 22:43 74 141/69 H 95 08/15/19 22:38 83 98 08/15/19 22:33 86 99 08/15/19 22:30 80 91 08/15/19 22:28 72 151/78 H 99 08/15/19 22:23 126 H 100 08/15/19 22:18 84 98 08/15/19 22:17 20 08/15/19 22:13 88 145/79 H 98 08/15/19 22:09 36.9 C 08/15/19 22:08 89 97 08/15/19 22:03 94 H 98 08/15/19 21:58 81 97 08/15/19 21:57 74 18 116/63 93 08/15/19 21:53 66 92 08/15/19 21:48 63 93 08/15/19 21:43 60 18 117/61 92 08/15/19 21:42 74 94 08/15/19 21:38 62 93 08/15/19 21:35 69 93 08/15/19 21:33 62 94 08/15/19 21:28 76 93 08/15/19 21:27 62 18 117/67 08/15/19 21:23 63 94 08/15/19 21:18 70 93 08/15/19 21:17 64 94 08/15/19 21:13 71 94 08/15/19 21:12 73 18 115/65 08/15/19 21:11 85 94 08/15/19 21:08 70 94 08/15/19 21:05 73 94 08/15/19 21:03 73 94 08/15/19 21:00 71 20 94 08/15/19 20:59 74 127/71 08/15/19 20:58 73 95 08/15/19 20:53 78 95 08/15/19 20:48 79 93 08/15/19 20:43 88 95 08/15/19 20:42 80 116/56 L 08/15/19 20:38 82 95 08/15/19 20:37 78 94 08/15/19 20:33 75 93 08/15/19 20:32 92 H 94 08/15/19 20:28 82 118/60 95 08/15/19 20:26 79 94 08/15/19 20:25 37.2 C 18 08/15/19 20:23 84 95 08/15/19 20:18 84 95 Laboratory Results Laboratory Results - last 72 hr 08/15/19 08/15/19 08/15/19 08:15 08:15 08:15 WBC 8.64 RBC 4.07 L Hgb 11.6 L Hct 34.4 L MCV 84.5 MCH 28.5 MCHC 33.7 RDW Std Deviation 43.8 RDW Coeff of [place]ora 14.3 Plt Count 189 MPV 10.3 Sodium 138 Potassium 3.6 Chloride 108 H Carbon Dioxide 22 Anion Gap 8.0 BUN 9 Creatinine 0.76 Est Cr Clr Drug Dosing 133.9 Est GFR ( Amer) 120.3 Est GFR (Non-Af Amer) 103.8 BUN/Creatinine Ratio 12.1 Glucose 71 Calcium 9.4 Total Bilirubin 0.2 AST 16 ALT 18 Alkaline Phosphatase 496 H Total Protein 6.5 Albumin 2.6 L Globulin 3.9 Albumin/Globulin Ratio 0.7 L Hepatitis C Antibody Blood Type A Negative Antibody Screen NEGATIVE 08/15/19 08/16/19 08:15 05:55 WBC 10.09 RBC 3.85 L Hgb 11.0 L Hct 32.8 L MCV 85.2 MCH 28.6 MCHC 33.5 RDW Std Deviation 44.3 RDW Coeff of [place] 14.3 Plt Count 168 MPV 10.2 Sodium Potassium Chloride Carbon Dioxide Anion Gap BUN Creatinine Est Cr Clr Drug Dosing Est GFR ( Amer) Est GFR (Non-Af Amer) BUN/Creatinine Ratio Glucose Calcium Total Bilirubin AST ALT Alkaline Phosphatase Total Protein Albumin Globulin Albumin/Globulin Ratio Hepatitis C Antibody Neg Blood Type Antibody Screen
[2019-08-16] MEDS: FERROUS SULFATE 325 MG TAB PO SCH (08:45)
[2019-08-16] MEDS: PRENATAL VITAMIN 1 TAB PO SCH (08:45)
[2019-08-16] MEDS: DOCUSATE SODIUM 100 MG CAP PO SCH ×2 (08:45→21:01)
[2019-08-16 19:34] VITALS: O2SAT 96
[2019-08-16] MEDS ORDERED: bisacodyL 5 MG TABEC PO SCH (20:00)
[2019-08-16] MEDS: SERTRALINE HCL 100 MG TABLET PO SCH (21:03)
[2019-08-16] MEDS: MONTELUKAST SODIUM 10 MG TABLET PO SCH (21:03)
[2019-08-17 06:52] LABS: Hematocrit (blood only) 32.1 % (37-47); Hemoglobin 10.9 g/dL (12.0-16.0)
[2019-08-17 08:07] VITALS: BP 125/84; PULSE 64; TEMP 97.5
[2019-08-17] MEDS: FERROUS SULFATE 325 MG TAB PO SCH (08:44)
[2019-08-17] MEDS: PRENATAL VITAMIN 1 TAB PO SCH (08:44)
[2019-08-17] MEDS: IBUPROFEN 600 MG TAB PO PRN (08:44)
[2019-08-17] MEDS: DOCUSATE SODIUM 100 MG CAP PO SCH (08:44)
--- NOTE | 2019-08-17 08:56 | Obstetrical Progress Note ---
Date of Service August 17, 2019 Assessment & Plan (1) Normal course: PPD #1 Pt doing well No complaints disch home with instructions Results & Data Vital Signs (Past 12 Hours) Vital Signs Temp Pulse Resp BP Pulse Ox 08/17/19 08:00 36.4 C L 64 18 125/84 96 08/16/19 23:15 36.7 C 67 18 124/77
== END 2019-08-17 10:50 | disposition home or self-care (01) | DRG 806 ==
LOC: 4S1 07:29 → 4S2 08-16 01:17

== ENCOUNTER 2021-04-27 15:07 | Inpatient (IN) ==
[2021-04-27] MEDS ORDERED: dexAMETHasone**PF** 10 MG/ML VIAL IV ONE (15:46)
[2021-04-27] MEDS ORDERED: ALBUTEROL 0.083% NEBU SOLN 3 ML VIAL NEB STA (15:46)
[2021-04-27] MEDS ORDERED: SODIUM CHLORIDE 0.9% 500 ML IV ONE (15:47)
--- NOTE | 2021-04-27 16:02 | Emergency Department Note ---
Impression & Plan Pneumonia due to COVID-19 virus, Asthma with exacerbation, Exercise hypoxemia ED Provider Note NAME: KEELEY TOSCANO AGE: 36 SEX: F : 1985 ARRIVES VIA: Walk-In INFORMANT: Patient ED PROVIDER(S): Rahul Doshi DO CHIEF COMPLAINT: shortness of breath HPI: Patient is a 36-year-old female who tested positive for Covid with symptoms that started on the who presents to the ER for worsening shortness of breath. She admits to cough and congestion. She has been having fevers of the past 48 hours. She has been eating and drinking. She notes that anytime she gets up and moves she becomes significantly dyspneic. She was placed on azithromycin as well as steroids by her PCP. She was referred in today by her PCP as her pulse ox has been dropping into the 70s and she is significantly more dyspneic. She has been using inhaler as well as nebs for her asthma as well. ROS: See above HPI for pertinent positives & negatives. A total of 10 systems reviewed and were otherwise negative. PAST MEDICAL HISTORY:See Below PAST SURGICAL HISTORY:See Below FAMILY HISTORY:See Below SOCIAL HISTORY:See Below HOME MEDICATIONS:See Below ALLERGIES:See Below VITALS:See Below PHYSICAL EXAMINATION: GENERAL: Sitting up in bed, alert, well appearing, well nourished, no distress, non-toxic EYE EXAM: normal conjunctiva. PERRL and EOM's grossly intact. OROPHARYNX: no exudate, no erythema, lips, buccal mucosa, and tongue normal and mucous membranes are moist NECK: supple, no nuchal rigidity, no adenopathy, non-tender LUNGS: Diffuse wheezing bilateral. Normal chest wall mechanics HEART: no murmurs, S1 normal and S2 normal ABDOMEN: abdomen soft, non-tender, normo-active bowel sounds, no masses, no rebound or guarding. UPPER EXTREMITIES: upper extremities are grossly normal. LOWER EXTREMITIES: No pitting edema. NEURO EXAM: Normal sensorium, cranial nerves II-XII grossly intact, normal speech, no gross weakness of arms, no gross weakness of legs. MEDICAL DECISION MAKING: Patient is a 36-year-old female who presents ER with a past medical history of asthma who was Covid positive around [place] for his worsening shortness of breath. Pulse ox at home was dipping down to the 70s. She was referred in. IV was established blood work is obtained. Labs show no significant leukocytosis or anemia. D-dimer was slightly elevated. CT angio showed no PEs. BMP along with LFTs bilirubin and troponin were negative. CRP slightly elevated. Pro-Ken was normal. She is still positive for Covid. She was given IV fluids Decadron and neb treatments with some improvement in her wheezing. She dropped down to 83% with short walk in the ER. She is updated bedside discussed with the hospitalist admitted for further work-up. Triage Nursing notes reviewed. Limited review of prior medical records performed Vital Signs: reviewed and remarkable for HTN and hypoxic Differential diagnosis: Differential diagnoses includes but is not limited to pneumonia, bronchitis, COPD/Asthma exacerbation, pneumothorax, pulmonary embolism, congestive heart failure, acute coronary syndrome ER treatment provided: See below Diagnostics interpreted by me: ECG: Sinus rhythm rate 55 Normal axis T wave inversion V1 through V4 QTC 419 No significant change from previous EKG Cardiac Monitoring: An order was placed for continuous cardiac monitoring. The monitor shows a rate of 62 with sinus rhythm. Laboratory studies: As stated above and show below. Imaging studies: CT angios chest shows no PEs but bilateral infiltrates Chest x-ray with hazy infiltrates Consultation(s): Discussed with hospitalist for further evaluation Procedures: none Critical Care: None Past Med/Surg History Medical History (Updated 04/27/21 @ 18:35 by Leonora Freire PA-C) Anxiety Asthma Bipolar disorder Depression Zoloft Gestational hypertension w/o significant proteinuria in 3rd trimester Hypothyroidism Normal course Post-term , 40-42 weeks of gestation Thyroid nodule Benign Surgical History (Updated 04/27/21 @ 18:29 by Leonora Freire PA-C) [place] teeth extracted Family History Other No pertinent family history in first degree relatives Social History Smoking Status: Never smoker Hx Alcohol Use: No Hx Substance Use: No Preferred Language: B[place] Communication Ability: Effective Beliefs That Will Affect Care: None marital status: Current Living Situation: Spouse Current Living Situation Comment: Lives with and children Feels Safe at Home: Yes Assistive Devices: None Allergies Allergies Allergy/AdvReac Type Severity Reaction Status Date / Time Penicillins Allergy Mild rash Verified 04/27/21 16:16 potassium Allergy Mild RASH Verified 04/27/21 16:16 Flu Virus Vaccine Allergy Mild rash Uncoded 04/27/21 16:16 Home Meds Home Medications Medication Instructions Recorded Confirmed azithromycin 500 mg tablet 500 mg PO DAILY 04/27/21 04/27/21 celecoxib 200 mg capsule 200 mg PO BID 04/27/21 04/27/21 clonazepam 1 mg tablet 2 mg PO HS 04/27/21 04/27/21 dexamethasone 2 mg tablet 0 mg PO DAILY 04/27/21 04/27/21 dextroamphetamine-amphetamine 10 10 mg PO QPM 04/27/21 04/27/21 mg tablet dextroamphetamine-amphetamine ER 20 mg PO QAM 04/27/21 04/27/21 20 mg 24hr capsule,extend release fluticasone 250 mcg-salmeterol 50 1 inh INHALATION BID 04/27/21 04/27/21 mcg/dose blistr powdr for inhalation (Advair Diskus) hydrocodone 10 mg-chlorpheniramine 5 ml PO Q12H PRN 04/27/21 04/27/21 8 mg/5 mL oral susp extend.rel 12hr ipratropium 0.5 mg-albuterol 3 mg 3 ml INHALATION Q4H PRN 04/27/21 04/27/21 (2.5 mg base)/3 mL nebulization soln levocetirizine 5 mg tablet 5 mg PO HS 04/27/21 04/27/21 levothyroxine 25 mcg tablet 25 mcg PO QAM 04/27/21 04/27/21 (Euthyrox) lurasidone 80 mg tablet (Latuda) 80 mg PO HS 04/27/21 04/27/21 omeprazole 40 mg capsule,delayed 40 mg PO HS 04/27/21 04/27/21 release paroxetine HCl 20 mg tablet 20 mg PO HS 04/27/21 04/27/21 zafirlukast 20 mg tablet 20 mg PO BID 04/27/21 04/27/21 Results & Data (ED) Vital Signs Vital Signs - 24 hr 04/27/21 15:22 04/27/21 15:35 04/27/21 15:36 Temperature Source Temporal Artery Scan Pulse Rate 72 Pulse Rate from SpO2 Sensor Pulse Rhythm Regular Pulse Strength Normal Respiratory Rate 20 Respiratory Effort / Characteristics Non-Labored Spontaneous Labored Respiratory Depth Normal Respiratory Pattern Regular Blood Pressure 149/96 H Blood Pressure Mean 113 Blood Pressure Position Sitting Pulse Oximetry 94 85 L 94 Oxygen Delivery Method Room Air Room Air Room Air Sepsis Recent Fever Within 48 Hours No Sepsis New/Unexplained Change in Mental Status N/A Sepsis Action Taken by Nursing No Action Required Oxygen Flow Rate - Titration Pulse Oximetry Post Tiitration 04/27/21 15:56 04/27/21 19:00 04/27/21 19:30 Temperature Source Pulse Rate 65 88 87 Pulse Rate from SpO2 Sensor 86 82 Pulse Rhythm Regular Pulse Strength Respiratory Rate 16 17 21 Respiratory Effort / Characteristics Respiratory Depth Respiratory Pattern Blood Pressure Blood Pressure Mean Blood Pressure Position Pulse Oximetry 93 93 93 Oxygen Delivery Method Room Air Sepsis Recent Fever Within 48 Hours Sepsis New/Unexplained Change in Mental Status Sepsis Action Taken by Nursing Oxygen Flow Rate - Titration Pulse Oximetry Post Tiitration 04/27/21 20:00 04/27/21 20:30 04/27/21 20:37 Temperature Source Pulse Rate 68 60 Pulse Rate from SpO2 Sensor 67 63 Pulse Rhythm Pulse Strength Respiratory Rate 51 H 23 Respiratory Effort / Characteristics Respiratory Depth Respiratory Pattern Blood Pressure Blood Pressure Mean Blood Pressure Position Pulse Oximetry 93 93 89 L Oxygen Delivery Method Room Air Sepsis Recent Fever Within 48 Hours Sepsis New/Unexplained Change in Mental Status Sepsis Action Taken by Nursing Oxygen Flow Rate - Titration 2 Pulse Oximetry Post Tiitration 94 Laboratory Data Result diagrams: 04/27/21 15:58 04/27/21 15:58 Lab Results 04/27/21 04/27/21 04/27/21 Range/Units 15:58 15:58 15:58 WBC 10.63 (4.8-10.8) K/uL RBC 4.87 (4.2-5.4) M/uL Hgb 13.1 (12.0-16.0) g/dL Hct 39.5 (37-47) % MCV 81.1 (80-100) fL MCH 26.9 (25-34) pg MCHC 33.2 (32-36) g/dL RDW Std Deviation 41.2 (36.4-46.3) fL RDW Coeff of [place] 13.8 (11.5-14.5) % Plt Count 373 (130-400) K/uL MPV 10.0 (7.4-10.4) fL Immature Gran % (Auto) 1.2 % Neut % (Auto) 82.0 % Lymph % (Auto) 9.3 % [place] % (Auto) 7.1 % Eos % (Auto) 0.0 % Baso % (Auto) 0.4 % Neut # (Auto) 8.71 H (1.4-6.5) K/uL Lymph # (Auto) 0.99 L (1.2-3.4) K/uL [place] # (Auto) 0.76 H (0.11-0.59) K/uL Eos # (Auto) 0.00 (0-0.5) K/uL Baso # (Auto) 0.04 (0-0.2) K/uL Immature Gran # (Auto) 0.13 H (0.00-0.02) K/uL D-Dimer 570 H* (0-500) ug/L FEU Sodium 140 (136-145) mmol/L Potassium 3.7 (3.5-5.1) mmol/L Chloride 106 (98-107) mmol/L Carbon Dioxide 24 (21-32) mmol/L Anion Gap 10.0 (3-11) BUN 18 (7-18) mg/dl Creatinine 0.96 (0.6-1.2) mg/dl Est Cr Clr Drug Dosing 101.5 ml/min Est GFR ( Amer) 89.4 ml/min Est GFR (Non-Af Amer) 77.2 ml/min BUN/Creatinine Ratio 18.3 (10-20) Glucose 114 H (70-99) mg/dl Calcium 9.1 (8.5-10.1) mg/dl Total Bilirubin 0.3 (0.2-1) mg/dl AST 22 (15-37) U/L ALT 30 (12-78) Alkaline Phosphatase 71 D (45-117) U/L Troponin I < 0.015 (0-0.045) ng/ml C-Reactive Protein (0-0.29) mg/dl Total Protein 7.4 (6.4-8.2) gm/dl Albumin 3.0 L (3.4-5.0) gm/dl Globulin 4.4 H (2.5-4.0) gm/dl Albumin/Globulin Ratio 0.7 L (0.9-2) Lipase 123 (73-393) U/L Procalcitonin (0-0.5) ng/ml SARS-CoV-2 (PCR) (Negative) Influenza Type A (PCR) (Neg) Influenza Type B (PCR) (Neg) RSV (RT-PCR) (Neg) 04/27/21 04/27/21 04/27/21 Range/Units 15:58 15:58 16:11 WBC (4.8-10.8) K/uL RBC (4.2-5.4) M/uL Hgb (12.0-16.0) g/dL Hct (37-47) % MCV (80-100) fL MCH (25-34) pg MCHC (32-36) g/dL RDW Std Deviation (36.4-46.3) fL RDW Coeff of [place] (11.5-14.5) % Plt Count (130-400) K/uL MPV (7.4-10.4) fL Immature Gran % (Auto) % Neut % (Auto) % Lymph % (Auto) % [place] % (Auto) % Eos % (Auto) % Baso % (Auto) % Neut # (Auto) (1.4-6.5) K/uL Lymph # (Auto) (1.2-3.4) K/uL [place] # (Auto) (0.11-0.59) K/uL Eos # (Auto) (0-0.5) K/uL Baso # (Auto) (0-0.2) K/uL Immature Gran # (Auto) (0.00-0.02) K/uL D-Dimer (0-500) ug/L FEU Sodium (136-145) mmol/L Potassium (3.5-5.1) mmol/L Chloride (98-107) mmol/L Carbon Dioxide (21-32) mmol/L Anion Gap (3-11) BUN (7-18) mg/dl Creatinine (0.6-1.2) mg/dl Est Cr Clr Drug Dosing ml/min Est GFR ( Amer) ml/min Est GFR (Non-Af Amer) ml/min BUN/Creatinine Ratio (10-20) Glucose (70-99) mg/dl Calcium (8.5-10.1) mg/dl Total Bilirubin (0.2-1) mg/dl AST (15-37) U/L ALT (12-78) Alkaline Phosphatase (45-117) U/L Troponin I (0-0.045) ng/ml C-Reactive Protein 8.91 H (0-0.29) mg/dl Total Protein (6.4-8.2) gm/dl Albumin (3.4-5.0) gm/dl Globulin (2.5-4.0) gm/dl Albumin/Globulin Ratio (0.9-2) Lipase (73-393) U/L Procalcitonin < 0.05 (0-0.5) ng/ml SARS-CoV-2 (PCR) POSITIVE A* (Negative) Influenza Type A (PCR) Negative (Neg) Influenza Type B (PCR) Negative (Neg) RSV (RT-PCR) Negative (Neg) Administered Medications Discontinued Medications Albuterol (Albuterol 0.083% Nebu Soln 3 Ml Vial) 5 mg NEB NOW STA; Protocol Stop: 04/27/21 15:47 Last Admin: 04/27/21 16:18 Dose: 5 mg Documented by: [id number] Dexamethasone Sodium Phosphate (DexamethasonePf 10 Mg/Ml Vial) 6 mg IV NOW ONE Stop: 04/27/21 15:47 Last Admin: 04/27/21 16:18 Dose: 6 mg Documented by: [id number] Furosemide (Furosemide 40 Mg/4 Ml Vial) 40 mg IV ONE ONE Stop: 04/27/21 18:20 Last Admin: 04/27/21 18:55 Dose: 40 mg Documented by: [id number] Sodium Chloride (Nss) 500 mls @ 999 mls/hr IV .Q31M ONE Stop: 04/27/21 16:17 Last Infusion: 04/27/21 16:50 Dose: 0 mls/hr Documented by: [id number] Admin: 04/27/21 16:18 Dose: 999 mls/hr Documented by: [id number] Ioversol (Optiray 320 125ml) 117 ml IV ONCE ONE Stop: 04/27/21 17:16 Last Admin: 04/27/21 17:15 Dose: 1 ml Documented by: [id number] Imaging Data Radiologist's Impression: Chest X-Ray 04/27/21 15:46 XR chest 1V portable HISTORY: Atypical Chest Pain COMPARISON: None. FINDINGS: No pneumothorax. No pleural effusions. The cardiac silhouette is mildly enlarged. Hazy appearance to the mid to lower lung zones is could be due to overlapping soft tissue or developing airspace opacities. IMPRESSION: 1. Hazy appearance to the mid to lower lung zones could be due to overlapping soft tissue or developing airspace opacities. Clinical correlation recommended to assess for a viral pneumonia. 2. Mild cardiomegaly. ACT 112: Negative or not required by law. Electronically signed by: Crispin Truong M.D. 04/27/2021 4:09 PM Chest CTA 04/27/21 16:44 CHEST CTA for PULMONARY ARTERIES CT DOSE: 898.79 mGy.cm HISTORY: Shortness of breath. Covid positive. TECHNIQUE: Multiaxial CT images of the chest were performed following the intravenous administration of contrast to evaluate the pulmonary arteries. Maximal intensity projection images were also obtained. A dose lowering technique was utilized adhering to the principles of ALARA. COMPARISON STUDY: None. FINDINGS: Limited views of the upper abdomen demonstrate hepatic steatosis and a normal spleen. The adrenal glands are unremarkable. The thyroid gland enhances normally. Normal esophagus. No pleural or pericardial effusions. The heart is normal in size. No mediastinal or hilar lymphadenopathy. Normal caliber thoracic aorta with no evidence for dissection. No filling defects within the pulmonary arteries to suggest a pulmonary embolus. No fractures within the visualized osseous structures. No pneumothorax. The central airways are patent. Multifocal patchy groundglass airspace opacities most pronounced within the mid to lower lung zones consistent with a viral pneumonia. IMPRESSION: 1. No evidence for pulmonary embolus. 2. Moderate multifocal viral pneumonia. ACT 112: Negative or not required by law. Electronically signed by: Crispin Truong M.D. 04/27/2021 5:36 PM Discharge Plan Visit Data Chief Complaint: Shortness of Breath/Dyspnea Stated Complaint: SOB ED Provider: Rahul Doshi Prescriptions Prescriptions: No Action celecoxib 200 mg capsule 200 mg PO BID RF: 0 fluticasone propion-salmeterol [Advair Diskus] 250-50 mcg/dose Blister With Device 1 inh INHALATION BID RF: 0 ipratropium-albuterol 0.5 mg-3 mg(2.5 mg base)/3 mL solution for nebulization 3 ml INHALATION Q4H PRN (Reason: Shortness Of Breath Or Wheezing) RF: 0 dextroamphetamine-amphetamine 10 mg tablet 10 mg PO QPM RF: 0 clonazepam 1 mg tablet 2 mg PO HS RF: 0 omeprazole 40 mg capsule,delayed release(DR/EC) 40 mg PO HS RF: 0 levothyroxine [Euthyrox] 25 mcg tablet 25 mcg PO QAM RF: 0 dextroamphetamine-amphetamine 20 mg capsule,extended release 24hr 20 mg PO QAM RF: 0 dexamethasone 2 mg tablet 0 mg PO DAILY RF: 0 paroxetine HCl 20 mg tablet 20 mg PO HS RF: 0 zafirlukast 20 mg tablet 20 mg PO BID RF: 0 hydrocodone-chlorpheniramine 10-8 mg/5 mL suspension,extended rel 12 hr 5 ml PO Q12H PRN (Reason: Cough) RF: 0 azithromycin 500 mg tablet 500 mg PO DAILY RF: 0 levocetirizine 5 mg tablet 5 mg PO HS RF: 0 Latuda 80 mg tablet 80 mg PO HS RF: 0
[2021-04-27 16:10] LABS: Basophils # (auto) 0.04 K/uL (0-0.2); Basophils % (auto) 0.4 %; Hematocrit (blood only) 39.5 % (37-47); Hemoglobin 13.1 g/dL (12.0-16.0); Immature Granulocytes # (auto) 0.13 K/uL (0.00-0.02); Immature Granulocytes % (auto) 1.2 %; Lymphocytes # (auto) 0.99 K/uL (1.2-3.4); Lymphocytes % (auto) 9.3 %; Mean Corpuscular Hemoglobin 26.9 pg (25-34); Mean Corpuscular Hgb Conc 33.2 g/dL (32-36); Mean Corpuscular Volume 81.1 fL (80-100); Monocytes # (auto) 0.76 K/uL (0.11-0.59); Monocytes % (auto) 7.1 %; Neutrophils # (auto) 8.71 K/uL (1.4-6.5); Platelet Count 373 K/uL (130-400); RDW Coefficient of Variation 13.8 % (11.5-14.5); RDW Standard Deviation 41.2 fL (36.4-46.3); Red Blood Count 4.87 M/uL (4.2-5.4); White Blood Count 10.63 K/uL (4.8-10.8)
--- NOTE | 2021-04-27 16:11 | XRay Report ---
XR chest 1V portable HISTORY: Atypical Chest Pain COMPARISON: None. FINDINGS: No pneumothorax. No pleural effusions. The cardiac silhouette is mildly enlarged. Hazy appe arance to the mid to lower lung zones is could be due to overlapping soft tissue or developing airspa ce opacities. IMPRESSION: 1. Hazy appearance to the mid to lower lung zones could be due to overlapping soft tissue or developi ng airspace opacities. Clinical correlation recommended to assess for a viral pneumonia. 2. Mild cardiomegaly. ACT 112: Negative or not required by law. Electronically signed by: Crispin Truong M.D. 04/27/2021 4:09 PM
[2021-04-27 16:34] LABS: Alanine Aminotransferase 30 (12-78); Aspartate Aminotransferase 22 U/L (15-37); BUN Creatinine Ratio 18.3 (10-20); Blood Urea Nitrogen 18 mg/dl (7-18); Calcium 9.1 mg/dl (8.5-10.1); Carbon Dioxide 24 mmol/L (21-32); Chloride 106 mmol/L (98-107); Creatinine Clr Calc Pharmacy 101.5 ml/min; Est GFR (African American) 89.4 ml/min; Est GFR (Non-African American) 77.2 ml/min; Glucose 114 mg/dl (70-99); Lipase 123 U/L (73-393); Potassium 3.7 mmol/L (3.5-5.1); Sodium 140 mmol/L (136-145)
[2021-04-27 16:36] LABS: D Dimer 570 ug/L FEU (0-500)
[2021-04-27 16:39] LABS: Albumin Globulin Ratio 0.7 (0.9-2); Alkaline Phosphatase 71 U/L (45-117); Bilirubin,Total 0.3 mg/dl (0.2-1); Globulin 4.4 gm/dl (2.5-4.0); Total Protein 7.4 gm/dl (6.4-8.2); Troponin I < 0.015 ng/ml (0-0.045)
[2021-04-27 17:12] LABS: Influenza A virus by PCR Negative (Neg); Influenza B virus by PCR Negative (Neg); RSV by PCR Negative (Neg)
[2021-04-27] MEDS ORDERED: OPTIRAY 320 125ml IV ONE (17:15)
[2021-04-27 17:22] LABS: SARS CoV2 RNA(COVID-19) InHosp POSITIVE (Negative)
--- NOTE | 2021-04-27 17:37 | CT Scan Report ---
CHEST CTA for PULMONARY ARTERIES CT DOSE: 898.79 mGy.cm HISTORY: Shortness of breath. Covid positive. TECHNIQUE: Multiaxial CT images of the chest were performed following the intravenous administration of contrast to evaluate the pulmonary arteries. Maximal intensity projection images were also obtaine d. A dose lowering technique was utilized adhering to the principles of ALARA. COMPARISON STUDY: None. FINDINGS: Limited views of the upper abdomen demonstrate hepatic steatosis and a normal spleen. The a drenal glands are unremarkable. The thyroid gland enhances normally. Normal esophagus. No pleural or pericardial effusions. The heart is normal in size. No mediastinal or hilar lymphadenopathy. Normal c aliber thoracic aorta with no evidence for dissection. No filling defects within the pulmonary arteri es to suggest a pulmonary embolus. No fractures within the visualized osseous structures. No pneumoth orax. The central airways are patent. Multifocal patchy groundglass airspace opacities most pronounce d within the mid to lower lung zones consistent with a viral pneumonia. IMPRESSION: 1. No evidence for pulmonary embolus. 2. Moderate multifocal viral pneumonia. ACT 112: Negative or not required by law. Electronically signed by: Crispin Truong M.D. 04/27/2021 5:36 PM
--- NOTE | 2021-04-27 17:58 | History & Physical Report ---
Date of Service April 27, 2021+ Assessment & Plan (1) Hypoxia: (2) Pneumonia due to COVID-19 virus: Plan: This is a 36yo F with a PMH of asthma, depression and anxiety who presents with worsening SOB. Began feeling poorly on 04/11 with nausea and then developed fever, body aches, dry cough and increased SOB in setting of known covid. Positive covid test 04/16 Prescribed azithromycin and dexamethasone course as outpatient on 04/24/20 Worsening SOB over past 2 days with hypoxia of 79-85% with exertion with home pulse ox Chest CTA with no evidence for pulmonary embolus. Moderate multifocal viral pneumonia Covid PCR positive, CRP 8.91, procalcitonin pending Continue IV dexamethasone, incentive spirometry, supplemental O2. No indication for antibiotics at this time (3) Asthma: Plan: No wheezing on exam. Continue home inhalers, duoneb Q6H PRN SOB and wheezing (4) Bipolar disorder: Plan: Continue Latuda (5) Hypothyroidism: Plan: Continue levothyroxine (6) Depression: (7) Anxiety: Plan: Continue paroxetine, clonazepam HS DVT Ppx: SQ Lovenox Code status: FULL PCP: BRANDON Flaherty Dispo: Admitted to med/surg Patient seen in collaboration with Dr. Salguero. Please see addendum. History of Present Illness Primary Care Provider: BRANDON James This is a 36yo F with a PMH of asthma, depression and anxiety who presents with worsening SOB. Began feeling poorly on 04/11 with nausea and then developed fever, body aches, dry cough and increased SOB. Positive covid test 04/16. Prescribed azithromycin and dexamethasone course on 04/24/20. Over past day or two, patient has felt significantly more short of breath with short walks or bathing and had to sit down to rest. Home pulse ox reading as low as 79% but ran around 80-85% with exertion and up to 90% at rest. Has history of asthma and has been using inhalers as prescribed. No chills, headache, CP, palpitations, wheezing, N/V, abdominal pain, dysuria, diarrhea or constipation. Allergies Allergy/AdvReac Type Severity Reaction Status Date / Time Penicillins Allergy Mild rash Verified 04/27/21 16:16 potassium Allergy Mild RASH Verified 04/27/21 16:16 Flu Virus Vaccine Allergy Mild rash Uncoded 04/27/21 16:16 Home Medications Medication Instructions Recorded Confirmed Type azithromycin 500 mg tablet 500 mg PO DAILY 04/27/21 04/27/21 History celecoxib 200 mg capsule 200 mg PO BID 04/27/21 04/27/21 History clonazepam 1 mg tablet 2 mg PO HS 04/27/21 04/27/21 History dexamethasone 2 mg tablet 0 mg PO DAILY 04/27/21 04/27/21 History dextroamphetamine-amphetamine 10 10 mg PO QPM 04/27/21 04/27/21 History mg tablet dextroamphetamine-amphetamine ER 20 mg PO QAM 04/27/21 04/27/21 History 20 mg 24hr capsule,extend release fluticasone 250 mcg-salmeterol 50 1 inh INHALATION BID 04/27/21 04/27/21 History mcg/dose blistr powdr for inhalation (Advair Diskus) hydrocodone 10 mg-chlorpheniramine 5 ml PO Q12H PRN 04/27/21 04/27/21 History 8 mg/5 mL oral susp extend.rel 12hr ipratropium 0.5 mg-albuterol 3 mg 3 ml INHALATION Q4H PRN 04/27/21 04/27/21 History (2.5 mg base)/3 mL nebulization soln levocetirizine 5 mg tablet 5 mg PO HS 04/27/21 04/27/21 History levothyroxine 25 mcg tablet 25 mcg PO QAM 04/27/21 04/27/21 History (Euthyrox) lurasidone 80 mg tablet (Latuda) 80 mg PO HS 04/27/21 04/27/21 History omeprazole 40 mg capsule,delayed 40 mg PO HS 04/27/21 04/27/21 History release paroxetine HCl 20 mg tablet 20 mg PO QAM 04/27/21 04/27/21 History zafirlukast 20 mg tablet 20 mg PO BID 04/27/21 04/27/21 History Past Med/Surg History Medical History (Updated 04/27/21 @ 18:35 by Leonora Freire PA-C) Anxiety Asthma Bipolar disorder Depression Zoloft Gestational hypertension w/o significant proteinuria in 3rd trimester Hypothyroidism Normal course Post-term , 40-42 weeks of gestation Thyroid nodule Benign Surgical History (Updated 04/27/21 @ 18:29 by Leonora Freire PA-C) [place] teeth extracted Family History Other No pertinent family history in first degree relatives Social History Smoking Status: Never smoker Hx Alcohol Use: No Hx Substance Use: No Preferred Language: Mohawk Communication Ability: Effective Beliefs That Will Affect Care: None marital status: Current Living Situation: Spouse Current Living Situation Comment: Lives with and children Feels Safe at Home: Yes Assistive Devices: None Review of Systems Review of Systems: At least ten systems reviewed and negative except as noted in the HPI. Physical Exam Physical Exam: Please see Dr. Salguero's addendum for physical exam. Results & Data Results & Data ([facility]) Vital Signs (Past 12 Hours) Vital Signs Pulse Resp BP Pulse Ox 04/27/21 15:56 65 16 93 04/27/21 15:36 94 04/27/21 15:35 85 L 04/27/21 15:22 72 20 149/96 H 94 Laboratory Results Short CBC 04/27/21 Range/Units 15:58 WBC 10.63 (4.8-10.8) K/uL Hgb 13.1 (12.0-16.0) g/dL Hct 39.5 (37-47) % Plt Count 373 (130-400) K/uL BMP 04/27/21 15:58 Sodium 140 Potassium 3.7 Chloride 106 Carbon Dioxide 24 BUN 18 Creatinine 0.96 Glucose 114 H Calcium 9.1 Cardiac Enzymes 04/27/21 Range/Units 15:58 Troponin I < 0.015 (0-0.045) ng/ml Liver Function 04/27/21 Range/Units 15:58 Total Bilirubin 0.3 (0.2-1) mg/dl AST 22 (15-37) U/L ALT 30 (12-78) Alkaline Phosphatase 71 D (45-117) U/L Albumin 3.0 L (3.4-5.0) gm/dl Diagnostic Findings Chest X-Ray 04/27/21 15:46 XR chest 1V portable HISTORY: Atypical Chest Pain COMPARISON: None. FINDINGS: No pneumothorax. No pleural effusions. The cardiac silhouette is mildly enlarged. Hazy appearance to the mid to lower lung zones is could be due to overlapping soft tissue or developing airspace opacities. IMPRESSION: 1. Hazy appearance to the mid to lower lung zones could be due to overlapping soft tissue or developing airspace opacities. Clinical correlation recommended to assess for a viral pneumonia. 2. Mild cardiomegaly. ACT 112: Negative or not required by law. Electronically signed by: Crispin Truong M.D. 04/27/2021 4:09 PM Chest CTA 04/27/21 16:44 CHEST CTA for PULMONARY ARTERIES CT DOSE: 898.79 mGy.cm HISTORY: Shortness of breath. Covid positive. TECHNIQUE: Multiaxial CT images of the chest were performed following the intravenous administration of contrast to evaluate the pulmonary arteries. Maximal intensity projection images were also obtained. A dose lowering technique was utilized adhering to the principles of ALARA. COMPARISON STUDY: None. FINDINGS: Limited views of the upper abdomen demonstrate hepatic steatosis and a normal spleen. The adrenal glands are unremarkable. The thyroid gland enhances normally. Normal esophagus. No pleural or pericardial effusions. The heart is normal in size. No mediastinal or hilar lymphadenopathy. Normal caliber thoracic aorta with no evidence for dissection. No filling defects within the pulmonary arteries to suggest a pulmonary embolus. No fractures within the visualized osseous structures. No pneumothorax. The central airways are patent. Multifocal patchy groundglass airspace opacities most pronounced within the mid to lower lung zones consistent with a viral pneumonia. IMPRESSION: 1. No evidence for pulmonary embolus. 2. Moderate multifocal viral pneumonia. ACT 112: Negative or not required by law. Electronically signed by: Crispin Truong M.D. 04/27/2021 5:36 PM Supervising Physician Co-Signing Physician Notes Attending addendum: The patient was seen and examined in emergency room She is 36-year-old female with history of asthma has been complaining of shortness of breath since around 04/16/2021 She is not being vaccinated for COVID-19 virus but was diagnosed with COVID-19 virus infection on 16 April last year and tested to be positive again today She has been complaining of increasing shortness of breath recently with minimal exertion without any wheezing Has feverish feeling, her appetite and smell sensation are coming back but she does have abdominal discomfort with diarrhea On examination No apparent distress at rest Hemodynamically stable with blood pressure on the upper side at 149/96 Saturating normally on room air Chestdecreased breath sounds bilaterally HeartS1-S2, regular Abdomenbenign Extremitiestrace edema bilaterally CNSalert, awake and oriented x3 Her admission labs, imaging studies reviewed Has COVID-19 pneumonia with CRP around more than 9 Has asthma without any exacerbation Will start dexamethasone and not a candidate for remdesivir Agree with assessment and plan as outlined above by SIMÓN Smith Dr
[2021-04-27] MEDS ORDERED: FUROSEMIDE 40 MG/4 ML VIAL IV ONE (18:19)
[2021-04-27] MEDS ORDERED: POLYETHYLENE (MIRALAX) 17 GM PACK PO PRN (21:25)
[2021-04-27] MEDS ORDERED: ONDANSETRON INJ 2 MG/ML 2 ML VIAL IV PRN (21:25)
[2021-04-27] MEDS ORDERED: ACETAMINOPHEN 325 MG TAB PO PRN (21:25)
[2021-04-27] MEDS ORDERED: ALBUT/IPRATROP 3MG/0.5MG NEB 3 ML VIAL INH PRN (21:25)
[2021-04-27] MEDS ORDERED: HYDROcodone/HOMATROPINE SYRUP 5MG/1.5MG 5ML UDP PO PRN (21:59)
[2021-04-27] MEDS: ENOXAPARIN INJ 40 MG/0.4 ML SYR SQ SCH (22:16)
[2021-04-27] MEDS: PANTOprazole 40 MG TAB PO SCH (22:20)
[2021-04-27] MEDS: clonazePAM 1 MG TAB PO SCH (22:20)
[2021-04-27] MEDS: PARoxetine HCL 20 MG TAB PO SCH (22:20)
[2021-04-27] MEDS: CETIRIZINE HCL 10 MG TABLET PO SCH (22:20)
[2021-04-27] MEDS: LURASIDONE HCL 40 MG TAB PO SCH (22:21)
[2021-04-28] MEDS: LEVOTHYROXINE SODIUM 25 MCG TABLET PO SCH (06:29)
[2021-04-28] MEDS ORDERED: DEXAMETHASONE SOD INJ 4 MG/ML VIAL ONE (07:27)
[2021-04-28] MEDS: FLUTICASONE/VILANTEROL 200/25MCG 14 PUFFS/INHALER INH SCH (07:32)
--- NOTE | 2021-04-28 08:15 | Electrocardiogram Report ---
Test Reason : Blood Pressure : / mmHG Vent. Rate : 055 BPM Atrial Rate : 055 BPM P-R Int : 132 ms QRS Dur : 076 ms QT Int : 438 ms P-R-T Axes : 031 037 038 degrees QTc Int : 419 ms Poor data quality, interpretation may be adversely affected Sinus bradycardia Poor R wave progression, consider anterior AL vs. lead placement vs. LVH Diffuse Nonspecific T wave abnormality Abnormal ECG When compared with ECG of 25-MAY-2019 15:13, Vent. rate has decreased BY 39 BPM Confirmed by Marquise Ricardo ([id number]) on 04/28/2021 8:15:33 AM Referred By: REFERRED SELF Confirmed By:Marquise Ricardo
[2021-04-28] MEDS ORDERED: dexAMETHasone 6 MG in SYRINGE 0 ML IV SCH (09:00)
[2021-04-28 13:30] LABS: Pregnancy Test, Urine Negative (Negative)
[2021-04-28] MEDS ORDERED: POTASSIUM CHLORIDE CRTAB 20 MEQ TABCR PO STA (15:26)
[2021-04-28] MEDS ORDERED: FUROSEMIDE 40 MG/4 ML VIAL IV ONE (15:26)
--- NOTE | 2021-04-28 17:10 | Hospitalist Progress Note ---
Date of Service April 28, 2021 Assessment & Plan (1) Hypoxia: (2) Pneumonia due to COVID-19 virus: Plan: This is a 36yo F with a PMH of asthma, depression and anxiety who presents with worsening SOB. Began feeling poorly on 04/11 with nausea and then developed fev er, body aches, dry cough and increased SOB in setting of known covid. Positive covid test 04/16 Prescribed azithromycin and dexamethasone course as outpatient on 04/24/20 Worsening SOB over past 2 days with hypoxia of 79-85% with exertion with home pulse ox Chest CTA with no evidence for pulmonary embolus. Moderate multifocal viral pneumonia Covid PCR positive, CRP 8.91, procalcitonin less than 0.05 Continue IV dexamethasone, incentive spirometry, supplemental O2. No indication for antibiotics at this time Complicated by having asthma Clinically better but requiring about 4 L to maintain saturation (3) Asthma: Plan: No wheezing on exam. Continue home inhalers, duoneb Q6H PRN SOB and wheezing Will continue liberalized bronchodilator We will give IV Solu-Medrol 40 mg twice daily and hold off dexamethasone for now (4) Bipolar disorder: Plan: Continue Latuda (5) Hypothyroidism: Plan: Continue levothyroxine (6) Depression: (7) Anxiety: Plan: Continue paroxetine, clonazepam HS DVT Ppx: SQ Lovenox Code status: FULL PCP: BRANDON Flaherty [facility] Admission and Anticipated Discharge Date Admission Date: April 27, 2021 Subjective 04/28/2021 The patient was seen and examined in emergency room in the [facility] She has been feeling better but requiring 4 L of oxygen to maintain saturation She has minimal cough and no shortness of breath at rest Review of Systems Review of Systems: All systems reviewed and are unremarkable except as noted below Respiratory: No shortness of breath at rest but has cough Cardiovascular: Additional Comments: No Physical Exam Physical Exam: Lying in bed in prone position Constitutional: well developed, well nourished, + ill appearing and + obese Eyes: PERRL, conjunctivae normal, anicteric sclerae ENMT: external ear and nose normal, oropharynx normal Respiratory: no respiratory distress Auscultation: + diminished lung sounds and + crackles (Minimal crackles at the bases); no wheezes Cardiovascular: Rate/Rhythm: regular rate and regular rhythm; not bradycardic Heart Sounds: normal S1 and normal S2; no murmur Extremities: + edema (1+ edema bilaterally) Gastrointestinal (Abdomen): Inspection/Auscultation: normal bowel sounds; abdomen not distended Percussion/Palpation: abdomen soft; abdomen nontender Musculoskeletal: No acute arthritis in the knee joint Neurologic: Alert, awake and oriented x3 Lymphatic: no cervical or axillary lymphadenopathy Results & Data Results & Data ([facility]) Vital Signs (Past 12 Hours) Vital Signs Temp Pulse Resp BP Pulse Ox 04/28/21 16:11 36.3 C L 43 L 16 151/86 H 95 04/28/21 07:30 36.4 C L 40 L 20 118/81 94 04/28/21 06:31 52 L 14 144/105 H 95 Medications Administered Current Inpatient Medications Acetaminophen (Acetaminophen 325 Mg Tab) 650 mg PO Q4H PRN PRN Reason: Pain or Fever Stop: 05/27/21 21:24 Albuterol (Albut/Ipratrop 3mg/0.5mg Neb 3 Ml Vial) 3 ml INH Q4H PRN; Protocol PRN Reason: Shortness Of Breath Or Wheezing Stop: 05/27/21 21:24 Cetirizine HCl (Cetirizine Hcl 10 Mg Tablet) 10 mg PO HS GABRIELA Stop: 05/27/21 21:24 Last Admin: 04/27/21 22:20 Dose: 10 mg Documented by: Clonazepam (Clonazepam 1 Mg Tab) 2 mg PO HS GABRIELA Stop: 05/27/21 21:24 Last Admin: 04/27/21 22:20 Dose: 2 mg Documented by: Enoxaparin Sodium (Enoxaparin Inj 40 Mg/0.4 Ml Syr) 40 mg SQ Q24H GABRIELA Stop: 05/27/21 21:59 Last Admin: 04/27/21 22:16 Dose: 40 mg Documented by: Fluticasone/Vilanterol (Fluticasone/Vilanterol 200/25mcg 14 Puffs/Inhaler) 1 puffs INH DAILY GABRIELA Stop: 05/28/21 08:59 Last Admin: 04/28/21 07:32 Dose: 1 puffs Documented by: Hydrocodone Bit/Homatropine Methylb (Hydrocodone/Homatropine Syrup 5mg/1.5mg 5ml Udp) 5 ml PO Q12H PRN PRN Reason: Cough Stop: 05/11/21 21:58 Last Admin: 04/27/21 22:28 Dose: 5 ml Documented by: Dexamethasone 6 mg/ Syringe 1.5 mls @ 1 mls/min IV Q24H GABRIELA Stop: 05/28/21 08:59 Last Admin: 04/28/21 07:32 Dose: 1 mls/min Documented by: Levothyroxine Sodium (Levothyroxine Sodium 25 Mcg Tablet) 25 mcg PO DAILYBB [facility] Stop: 05/28/21 06:29 Last Admin: 04/28/21 06:29 Dose: 25 mcg Documented by: Lurasidone HCl (Lurasidone Hcl 40 Mg Tab) 80 mg PO [facility] Stop: 05/27/21 21:24 Last Admin: 04/27/21 22:21 Dose: 80 mg Documented by: Miscellaneous (Zafirlukast 20 Mg - Order Awaiting Action) 1 ea N/A QS [facility] Stop: 05/28/21 00:00 Last Admin: 04/28/21 16:27 Dose: Not Given Documented by: Ondansetron HCl (Ondansetron Inj 2 Mg/Ml 2 Ml Vial) 4 mg IV Q6H PRN PRN Reason: Nausea Stop: 05/27/21 21:24 Pantoprazole Sodium (Pantoprazole 40 Mg Tab) 40 mg PO [facility] Stop: 05/27/21 21:24 Last Admin: 04/27/21 22:20 Dose: 40 mg Documented by: Paroxetine HCl (Paroxetine Hcl 20 Mg Tab) 20 mg PO [facility] Stop: 05/27/21 21:24 Last Admin: 04/27/21 22:20 Dose: 20 mg Documented by: Polyethylene Glycol (Polyethylene (Miralax) 17 Gm Pack) 17 gm PO DAILY PRN PRN Reason: Constipation Stop: 05/27/21 21:24
[2021-04-28] MEDS: methylPREDNISolone 60 MG in SYRINGE 0 ML IV SCH (21:25)
[2021-04-28] MEDS: LURASIDONE HCL 40 MG TAB PO SCH (21:25)
[2021-04-28] MEDS: PARoxetine HCL 20 MG TAB PO SCH (21:26)
[2021-04-28] MEDS: PANTOprazole 40 MG TAB PO SCH (21:26)
[2021-04-28] MEDS: CETIRIZINE HCL 10 MG TABLET PO SCH (21:26)
[2021-04-28] MEDS: ENOXAPARIN INJ 40 MG/0.4 ML SYR SQ SCH (21:27)
[2021-04-28] MEDS: clonazePAM 1 MG TAB PO SCH (21:34)
[2021-04-29] MEDS: LEVOTHYROXINE SODIUM 25 MCG TABLET PO SCH (04:27)
[2021-04-29 07:01] LABS: BUN Creatinine Ratio 26.1 (10-20); Blood Urea Nitrogen 27 mg/dl (7-18); Calcium 9.2 mg/dl (8.5-10.1); Carbon Dioxide 28 mmol/L (21-32); Chloride 103 mmol/L (98-107); Creatinine Clr Calc Pharmacy 94.1 ml/min; Est GFR (African American) 81.2 ml/min; Glucose 149 mg/dl (70-99); Potassium 3.9 mmol/L (3.5-5.1); Sodium 137 mmol/L (136-145)
[2021-04-29 07:06] LABS: Troponin I < 0.015 ng/ml (0-0.045)
[2021-04-29] MEDS: methylPREDNISolone 60 MG in SYRINGE 0 ML IV SCH ×2 (09:23→21:15)
--- NOTE | 2021-04-29 12:33 | Cardiology Consultation ---
Date of Consultation April 29, 2021 Assessment & Plan (1) Pneumonia due to COVID-19 virus: (2) Bradycardia: 36-year-old obese female, BMI 45.7 kg/m, has history of asthma, admitted with SARS [place] 2 pneumonia Most recent oxygen saturation was 95% on 5 L nasal cannula. Continue supportive therapy with oxygen, agree with methylprednisolone. At present, she does not describe any symptoms suggestive of symptomatic bradycardia. Recommend ongoing observation on telemetry and supportive care for pneumonia. She is not on any heart rate lowering medications. Agree with Lovenox for DVT prophylaxis. History of Present Illness Attending Physician: Martínez Salguero MD History of Present Illness Kath Sanchez is a 36 year old female seen in cardiology consultation per the request of Dr Saenz for the evaluation of bradycardia. Patient had been admitted for stiff neck for SARS-CoV-2 related pneumonia with associated hypoxia, refractory to outpatient treatment. Currently on telemetry, sinus bradycardia in the mid 40s noted, with normal to high blood pressures, and no symptoms suggestive of symptomatic bradycardia. Overnight last night at 12:54 AM, transient junctional rhythm at 39 bpm noted during sleep. Of note, the patient describes that she does have a history of snoring, she states that she had a home sleep test performed approximately 2 years ago and states that The test was negative for sleep apnea at that time. Allergies Allergy/AdvReac Type Severity Reaction Status Date / Time Penicillins Allergy Mild rash Verified 04/27/21 16:16 potassium Allergy Mild RASH Verified 04/27/21 16:16 Flu Virus Vaccine Allergy Mild rash Uncoded 04/27/21 16:16 Home Medications Medication Instructions Recorded Confirmed Type azithromycin 500 mg tablet 500 mg PO DAILY 04/27/21 04/27/21 History celecoxib 200 mg capsule 200 mg PO BID 04/27/21 04/27/21 History clonazepam 1 mg tablet 2 mg PO HS 04/27/21 04/27/21 History dexamethasone 2 mg tablet 0 mg PO DAILY 04/27/21 04/27/21 History dextroamphetamine-amphetamine 10 10 mg PO QPM 04/27/21 04/27/21 History mg tablet dextroamphetamine-amphetamine ER 20 mg PO QAM 04/27/21 04/27/21 History 20 mg 24hr capsule,extend release fluticasone 250 mcg-salmeterol 50 1 inh INHALATION BID 04/27/21 04/27/21 History mcg/dose blistr powdr for inhalation (Advair Diskus) hydrocodone 10 mg-chlorpheniramine 5 ml PO Q12H PRN 04/27/21 04/27/21 History 8 mg/5 mL oral susp extend.rel 12hr ipratropium 0.5 mg-albuterol 3 mg 3 ml INHALATION Q4H PRN 04/27/21 04/27/21 History (2.5 mg base)/3 mL nebulization soln levocetirizine 5 mg tablet 5 mg PO HS 04/27/21 04/27/21 History levothyroxine 25 mcg tablet 25 mcg PO QAM 04/27/21 04/27/21 History (Euthyrox) lurasidone 80 mg tablet (Latuda) 80 mg PO HS 04/27/21 04/27/21 History omeprazole 40 mg capsule,delayed 40 mg PO HS 04/27/21 04/27/21 History release paroxetine HCl 20 mg tablet 20 mg PO HS 04/27/21 04/27/21 History zafirlukast 20 mg tablet 20 mg PO BID 04/27/21 04/27/21 History Patient History Medical History Anxiety Asthma Bipolar disorder Depression Zoloft Gestational hypertension w/o significant proteinuria in 3rd trimester Hypothyroidism Normal course Post-term , 40-42 weeks of gestation Thyroid nodule Benign Surgical History [place] teeth extracted Family History Other No pertinent family history in first degree relatives Social History Smoking Status: Never smoker Second Hand Exposure: No; Do You Dip or Chew Tobacco: No; Hx Alcohol Use: No Hx Substance Use: No Preferred Language: Omani Communication Ability: Effective [employer] Required: No Beliefs That Will Affect Care: None marital status: Current Living Situation: Spouse Current Living Situation Comment: Lives with and children Feels Safe at Home: Yes Safety Concerns: Feels Safe At This Time Assistive Devices: Oxygen - Continuous Review of Systems Review of Systems: All systems reviewed & are unremarkable except as noted in HPI & below Physical Exam Physical Exam: Temp Pulse Resp BP Pulse Ox 36.5 C 42 L 20 141/85 H 95 04/29/21 11:35 04/29/21 11:35 04/29/21 11:35 04/29/21 11:35 04/29/21 11:35 Constitutional: no acute distress Respiratory: + cough; no labored breathing Cardiovascular: Rate/Rhythm: regular rhythm and + bradycardic Neurologic: PERRL, EOMI, accommodation nl, no face palsy, no dysarthria Results & Data ([facility]) Vital Signs (Past 12 Hours) Vital Signs Temp Pulse Pulse Resp BP Pulse Ox 04/29/21 11:35 36.5 C 42 L 20 141/85 H 95 04/29/21 07:30 36.6 C 39 L 19 144/96 H 92 04/29/21 07:00 45 L 04/29/21 04:53 42 L 04/29/21 03:43 42 L 04/29/21 03:19 92 04/29/21 02:46 36.6 C 52 L 18 122/82 98 04/29/21 02:38 39 L 118/81 95 04/29/21 01:36 43 L 96 Laboratory Results Cardiac Enzymes 04/28/21 04/29/21 Range/Units 23:02 06:06 Troponin I < 0.015 < 0.015 (0-0.045) ng/ml Comprehensive Metabolic Panel 04/29/21 Range/Units 06:06 Sodium 137 (136-145) mmol/L Potassium 3.9 (3.5-5.1) mmol/L Chloride 103 (98-107) mmol/L Carbon Dioxide 28 (21-32) mmol/L BUN 27 H (7-18) mg/dl Creatinine 1.04 (0.6-1.2) mg/dl Glucose 149 H (70-99) mg/dl Calcium 9.2 (8.5-10.1) mg/dl Intake and Output 04/28/21 04/29/21 04/29/21 22:59 06:59 14:59 Intake Total 200 / 425 225 / 425 Balance 200 / 425 225 / 425 Intake: Oral 200 / 425 225 / 425 Other: # Unmeasured Voids 1 Weight 109 kg 117 kg Weight Measurement Method Standing Scale Built in [facility] Diagnostic Findings A CTA of the chest had been performed on presentation to the emergency room that was negative for pulmonary embolism however multifocal patchy groundglass air space opacities described in the radiology report consistent with multifocal viral pneumonia. No pericardial effusion. EKG performed 04/27/2021 at 1542 and reviewed independently revealed sinus bradycardia 55 bpm, with poor R wave progression in the precordial leads, likely due to the patient's body habitus, diffuse nonspecific T wave flattening.
[2021-04-29] MEDS: FLUTICASONE/VILANTEROL 200/25MCG 14 PUFFS/INHALER INH SCH (14:41)
--- NOTE | 2021-04-29 15:43 | Hospitalist Progress Note ---
Date of Service April 29, 2021 Assessment & Plan (1) Hypoxia: Plan: Secondary to his COVID-pneumonia and is complicated by asthma Morbidly obese BMI more than 45 advised weight reduction (2) Pneumonia due to COVID-19 virus: Plan: This is a 36yo F with a PMH of asthma, depression and anxiety who presents with worsening SOB. Began feeling poorly on 04/11 with nausea and then developed fever, body aches, dry cough and increased SOB in setting of known covid. Positive covid test 04/16 Prescribed azithromycin and dexamethasone course as outpatient on 04/24/20 Worsening SOB over past 2 days with hypoxia of 79-85% with exertion with home pulse ox Chest CTA with no evidence for pulmonary embolus. Moderate multifocal viral pneumonia Covid PCR positive, CRP 8.91, procalcitonin less than 0.05 Continue IV dexamethasone, incentive spirometry, supplemental O2. 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 Continue home inhalers, duoneb Q6H PRN SOB and wheezing Will continue liberalized bronchodilator We will give IV Solu-Medrol 40 mg twice daily and hold off dexamethasone for now (4) Bradycardia: Plan: Noted to be bradycardic with a heart rate is going down as low as upper 30s Did not have any symptoms Appreciate cardiology input and recommendation Has hypothyroidism and will get TSH checked and also check Lyme titer (5) Bipolar disorder: Plan: Continue Latuda (6) Hypothyroidism: Plan: Continue levothyroxine (7) Depression: Plan: Management as below (8) Anxiety: Plan: Continue paroxetine, clonazepam HS DVT Ppx: SQ Lovenox Code status: FULL PCP: BRANDON Flaherty Dispo: Admitted to med/diana Admission and Anticipated Discharge Date Admission Date: April 27, 2021 Subjective 04/28/2021 The patient was seen and examined in emergency room in the holding area She has been feeling better but requiring 4 L of oxygen to maintain saturation She has minimal cough and no shortness of breath at rest 04/29/2021 The patient was seen and examined in COVID room She has been feeling a little better and requiring about 3 to 5 L of oxygen to maintain saturation Denies any chest pain, palpitation or increasing shortness of breath She was noted to have low heart rate at around upper 30s and was advised for cardiology evaluation Review of Systems Review of Systems: All systems reviewed and are unremarkable except as noted below Respiratory: No shortness of breath at rest but has cough Cardiovascular: Additional Comments: No Physical Exam Physical Exam: Sitting on the bed without any acute distress but very anxious Constitutional: well developed, well nourished, + ill appearing and + obese Eyes: PERRL, conjunctivae normal, anicteric sclerae ENMT: external ear and nose normal, oropharynx normal Neck: trachea midline, no thyromegaly Respiratory: no respiratory distress Auscultation: + diminished lung sounds and + crackles (Minimal crackles at the bases); no wheezes Cardiovascular: Rate/Rhythm: regular rate and regular rhythm; not bradycardic Heart Sounds: normal S1 and normal S2; no murmur Extremities: + edema (1+ edema bilaterally) Gastrointestinal (Abdomen): Inspection/Auscultation: normal bowel sounds; abdomen not distended Percussion/Palpation: abdomen soft; abdomen nontender Musculoskeletal: No acute arthritis in any joint Neurologic: Alert, awake and oriented x3. No focal sensory no motor deficit appreciated Lymphatic: no cervical or axillary lymphadenopathy Results & Data Results & Data ([facility]) Vital Signs (Past 12 Hours) Vital Signs Temp Pulse Pulse Resp BP Pulse Ox 04/29/21 15:18 36.4 C L 51 L 20 128/79 94 04/29/21 11:35 36.5 C 42 L 20 141/85 H 95 04/29/21 07:30 36.6 C 39 L 19 144/96 H 92 04/29/21 07:00 45 L 04/29/21 04:53 42 L 04/29/21 03:43 42 L Laboratory Results BMP 04/29/21 06:06 Sodium 137 Potassium 3.9 Chloride 103 Carbon Dioxide 28 BUN 27 H Creatinine 1.04 Glucose 149 H Calcium 9.2 Cardiac Enzymes 04/28/21 04/29/21 Range/Units 23:02 06:06 Troponin I < 0.015 < 0.015 (0-0.045) ng/ml Medications Administered Current Inpatient Medications Acetaminophen (Acetaminophen 325 Mg Tab) 650 mg PO Q4H PRN PRN Reason: Pain or Fever Stop: 05/27/21 21:24 Albuterol (Albut/Ipratrop 3mg/0.5mg Neb 3 Ml Vial) 3 ml INH Q4H PRN; Protocol PRN Reason: Shortness Of Breath Or Wheezing Stop: 05/27/21 21:24 Cetirizine HCl (Cetirizine Hcl 10 Mg Tablet) 10 mg PO HS GABRIELA Stop: 05/27/21 21:24 Last Admin: 04/28/21 21:26 Dose: 10 mg Documented by: Clonazepam (Clonazepam 1 Mg Tab) 2 mg PO HS GABRIELA Stop: 05/27/21 21:24 Last Admin: 04/28/21 21:34 Dose: 2 mg Documented by: Enoxaparin Sodium (Enoxaparin Inj 40 Mg/0.4 Ml Syr) 40 mg SQ Q24H GABRIELA Stop: 05/27/21 21:59 Last Admin: 04/28/21 21:27 Dose: 40 mg Documented by: Fluticasone/Vilanterol (Fluticasone/Vilanterol 200/25mcg 14 Puffs/Inhaler) 1 puffs INH DAILY GABRIELA Stop: 05/28/21 08:59 Last Admin: 04/29/21 14:41 Dose: Not Given Documented by: Hydrocodone Bit/Homatropine Methylb (Hydrocodone/Homatropine Syrup 5mg/1.5mg 5ml Udp) 5 ml PO Q12H PRN PRN Reason: Cough Stop: 05/11/21 21:58 Last Admin: 04/27/21 22:28 Dose: 5 ml Documented by: Methylprednisolone 60 mg/ (Syringe) 0.96 mls @ 1.5 mls/min IV BID GABRIELA Stop: 05/28/21 20:59 Last Admin: 04/29/21 09:23 Dose: 1.5 mls/min Documented by: Levothyroxine Sodium (Levothyroxine Sodium 25 Mcg Tablet) 25 mcg PO DAILYBB GABRIELA Stop: 05/28/21 06:29 Last Admin: 04/29/21 04:27 Dose: 25 mcg Documented by: Lurasidone HCl (Lurasidone Hcl 40 Mg Tab) 80 mg PO HS GABRIELA Stop: 05/27/21 21:24 Last Admin: 04/28/21 21:25 Dose: 80 mg Documented by: Miscellaneous (Zafirlukast 20 Mg - Order Awaiting Action) 1 ea N/A QS [facility] Stop: 05/28/21 00:00 Last Admin: 04/29/21 15:09 Dose: Not Given Documented by: Ondansetron HCl (Ondansetron Inj 2 Mg/Ml 2 Ml Vial) 4 mg IV Q6H PRN PRN Reason: Nausea Stop: 05/27/21 21:24 Pantoprazole Sodium (Pantoprazole 40 Mg Tab) 40 mg PO [facility] Stop: 05/27/21 21:24 Last Admin: 04/28/21 21:26 Dose: 40 mg Documented by: Paroxetine HCl (Paroxetine Hcl 20 Mg Tab) 20 mg PO [facility] Stop: 05/27/21 21:24 Last Admin: 04/28/21 21:26 Dose: 20 mg Documented by: Polyethylene Glycol (Polyethylene (Miralax) 17 Gm Pack) 17 gm PO DAILY PRN PRN Reason: Constipation Stop: 05/27/21 21:24
[2021-04-29] MEDS ORDERED: POTASSIUM CHLORIDE CRTAB 20 MEQ TABCR PO ONE (16:00)
[2021-04-29] MEDS ORDERED: FUROSEMIDE 40 MG/4 ML VIAL IV ONE (16:00)
[2021-04-29] MEDS: LURASIDONE HCL 40 MG TAB PO SCH (21:15)
[2021-04-29] MEDS: CETIRIZINE HCL 10 MG TABLET PO SCH (21:16)
[2021-04-29] MEDS: PARoxetine HCL 20 MG TAB PO SCH (21:16)
[2021-04-29] MEDS: ENOXAPARIN INJ 40 MG/0.4 ML SYR SQ SCH (21:16)
[2021-04-29] MEDS: PANTOprazole 40 MG TAB PO SCH (21:16)
[2021-04-29] MEDS: clonazePAM 1 MG TAB PO SCH (21:20)
[2021-04-30] MEDS: LEVOTHYROXINE SODIUM 25 MCG TABLET PO SCH (05:51)
[2021-04-30 06:40] LABS: BUN Creatinine Ratio 31.1 (10-20); Creatinine Clr Calc Pharmacy 108.6 ml/min; Est GFR (African American) 96.7 ml/min; Est GFR (Non-African American) 83.4 ml/min; Potassium 4.4 mmol/L (3.5-5.1)
[2021-04-30] MEDS: methylPREDNISolone 60 MG in SYRINGE 0 ML IV SCH ×2 (09:02→21:24)
[2021-04-30 09:05] LABS: Lyme Ab IgM w/WB Rflx Negative (Negative)
[2021-04-30 09:09] LABS: Lyme Ab IgG w/WB Rflx Negative (Negative)
[2021-04-30] MEDS: FLUTICASONE/VILANTEROL 200/25MCG 14 PUFFS/INHALER INH SCH (10:06)
--- NOTE | 2021-04-30 11:15 | Communication Note ---
Date of Service: April 30, 2021 Telemetry reviewed. Called pt on the phone and interviewed her. Telemetry reveals ongoing sinus arrhythmia during waking and sleeping hours, heart rates will awake in range of 39-50s. No pauses or AV block. No subjective signs or symptoms of bradycardia. Pt states her baseline resting HR is 60 bpm Of note, patient is no currently on dextroamphetamine /amphetamine. Rayne has a <1% reported incidence of bradycardia. She remains on supplemental oxygen and reports shortness of breath with attempts to wean.
--- NOTE | 2021-04-30 18:18 | Hospitalist Progress Note ---
Date of Service April 30, 2021 Assessment & Plan (1) Hypoxia: Plan: Secondary to his COVID-pneumonia and is complicated by asthma Morbidly obese BMI more than 45 Advised weight management (2) Pneumonia due to COVID-19 virus: Plan: Patient is a 36 yr female with a PMH of asthma, depression and anxiety who presents with worsening SOB. Began feeling poorly on 04/11 with nausea and then developed fever, body aches, dry cough and increased SOB in setting of known covid. COVID-19 pneumonia Hypoxia -CTA:No evidence for pulmonary embolus. Moderate multifocal viral pneumonia. Positive covid test 04/16 Prescribed azithromycin and dexamethasone course as outpatient on 04/24/20 CRP 8.91, procalcitonin less than 0.05 Continue incentive spirometry, supplemental O2. Continue IV steroids Encouraged to prone Lasix as needed Repeat inflammatory markers tomorrow May need 2 step prior to discharge (3) Asthma: Plan: No wheezing on exam. Continue home inhalers, duoneb Q6H PRN SOB and wheezing On IV Solu-Medrol 40 mg twice daily (4) Bradycardia: Plan: Noted to be bradycardic with a heart rate is going down as low as upper 30s Asymptomatic Appreciate cardiology input and recommendation Lyme titer negative ? Secondary to Latuda Avoid AV margarette blocking agents (5) Bipolar disorder: Plan: Continue Latuda (6) Hypothyroidism: Plan: Continue levothyroxine Needs repeat thyroid function tests as outpatient (7) Depression: Plan: Management as below (8) Anxiety: Plan: Continue paroxetine, clonazepam HS DVT Px: SQ Lovenox Code status: FULL PCP: BRANDON Flaherty Admission and Anticipated Discharge Date Admission Date: April 27, 2021 Subjective Patient is seen and examined at bedside States having minimal shortness of breath on exertion Also reports dry cough Denies any chest pain, dizziness, nausea, abdominal pain Currently on 3 L supplemental oxygen Offers no other complaints Review of Systems Review of Systems: All systems reviewed & are unremarkable except as noted in Subjective Physical Exam Physical Exam: Physical Exam: Vitals signs as noted above General Appearance:Morbidly Obese, no apparent distress Head: normocephalic, Atraumatic Eyes: normal inspection, EOMI Neck: supple, Trachea midline Respiratory/Chest: Decreased breath sounds, CTA, No accessory muscle use Cardiovascular: S1, S2, No murmur Abdomen/GI:Soft, Non tender, Bowel sounds present Extremities/Musculoskeletal:normal inspection, no edema Neurologic/Psych:AAOX3, grossly no focal neurological deficits Skin: normal color, warm Results & Data Results & Data ([facility]) Vital Signs (Past 12 Hours) Vital Signs Temp Pulse Pulse Resp BP Pulse Ox 04/30/21 15:55 37.0 C 42 L 18 150/96 H 95 04/30/21 15:37 42 L 04/30/21 12:00 36.7 C 43 L 18 154/96 H 96 04/30/21 06:47 36.5 C 39 L 18 141/85 H 96 Laboratory Results [facility] 04/30/21 05:35 Sodium 136 Potassium 4.4 Chloride 100 Carbon Dioxide 27 BUN 28 H Creatinine 0.90 Glucose 123 H Calcium 9.0
[2021-04-30] MEDS: PARoxetine HCL 20 MG TAB PO SCH (21:24)
[2021-04-30] MEDS: LURASIDONE HCL 40 MG TAB PO SCH (21:24)
[2021-04-30] MEDS: clonazePAM 1 MG TAB PO SCH (21:24)
[2021-04-30] MEDS: CETIRIZINE HCL 10 MG TABLET PO SCH (21:25)
[2021-04-30] MEDS: PANTOprazole 40 MG TAB PO SCH (21:25)
[2021-04-30] MEDS: ENOXAPARIN INJ 40 MG/0.4 ML SYR SQ SCH (21:25)
[2021-05-01] MEDS: LEVOTHYROXINE SODIUM 25 MCG TABLET PO SCH (06:09)
[2021-05-01 08:02] LABS: Calcium 8.9 mg/dl (8.5-10.1); Creatinine Clr Calc Pharmacy 118.4 ml/min; Est GFR (African American) 108.2 ml/min; Est GFR (Non-African American) 93.4 ml/min; Potassium 4.3 mmol/L (3.5-5.1)
[2021-05-01] MEDS: methylPREDNISolone 60 MG in SYRINGE 0 ML IV SCH (10:23)
[2021-05-01] MEDS: FLUTICASONE/VILANTEROL 200/25MCG 14 PUFFS/INHALER INH SCH (10:24)
--- NOTE | 2021-05-01 12:11 | Cardiology Progress Note ---
Date of Service May 01, 2021 Assessment & Plan (1) Pneumonia due to COVID-19 virus: (2) Bradycardia: Plan: 36-year-old obese female, BMI 45.7 kg/m, has history of asthma, admitted with SARS Cov-2 pneumonia. Telemetry reviewed. I called the patient on the phone. She feels that she is trending toward improvement. She is currently off of oxygen, and most recent pulse oximetry as recorded an hour ago was a measurement of 91% on room air. Telemetry reveals sinus bradycardia and sinus arrhythmia in the upper 40s to 50s. As previously discussed, which Ara has a low incidence of potentially causing bradycardia. Patient tells me at baseline she is on dex troamphetamine/amphetamine, but has not taken this medication since her respiratory illness, as she was concerned that this would make her heart rate too high. Present, her heart rate is stable. Agree with holding her dextroamphetamine/amphetamine until she gets over her respiratory illness. Anticipate her heart rate will return to its typical baseline of 60s. Admission and Anticipated Discharge Date Admission Date: April 27, 2021 Results & Data ([facility] [place]) Vital Signs (Past 12 Hours) Vital Signs Temp Pulse Pulse Resp BP Pulse Ox 05/01/21 11:08 36.6 C 50 L 18 137/82 91 05/01/21 06:40 36.7 C 48 L 20 161/93 H 97 05/01/21 03:35 36.7 C 46 L 20 156/99 H 96 05/01/21 00:20 38 L
--- NOTE | 2021-05-01 15:05 | Hospitalist Progress Note ---
Date of Service May 01, 2021 Assessment & Plan (1) Hypoxia: Plan: Secondary to his COVID-pneumonia and is complicated by asthma Morbidly obese BMI more than 45 Advised weight management (2) Pneumonia due to COVID-19 virus: Plan: Patient is a 36 yr female with a PMH of asthma, depression and anxiety who presents with worsening SOB. Began feeling poorly on 04/11 with nausea and then developed fever, body aches, dry cough and increased SOB in setting of known covid. COVID-19 pneumonia Hypoxia -CTA:No evidence for pulmonary embolus. Moderate multifocal viral pneumonia. Positive covid test 04/16 Prescribed azithromycin and dexamethasone course as outpatient on 04/24/20 CRP 8.91>1.3 Procalcitonin < 0.05 Continue incentive spirometry, supplemental O2. Continue IV steroids Encouraged to prone Lasix as needed 2 step : 2 L with activity Clinically improved (3) Asthma: Plan: No wheezing on exam. Continue home inhalers, duoneb Q6H PRN SOB and wheezing On IV Solu-Medrol 40 mg twice daily Transition to p.o. steroids (4) Bradycardia: Plan: Noted to be bradycardic with a heart rate is going down as low as upper 30s Asymptomatic Appreciate cardiology input and recommendation Lyme titer negative ? Secondary to Latuda Avoid AV margarette blocking agents (5) Bipolar disorder: Plan: Continue Latuda (6) Hypothyroidism: Plan: Continue levothyroxine Needs repeat thyroid function tests as outpatient (7) Depression: Plan: Management as below (8) Anxiety: Plan: Continue paroxetine, clonazepam HS DVT Px: SQ Lovenox Code status: FULL PCP: BRANDON Flaherty Admission and Anticipated Discharge Date Admission Date: April 27, 2021 Subjective Patient is seen and examined at bedside States feeling well today No new complaints Denies any dyspnea, chest pain, dizziness, nausea, abdominal pain Had 2 step earlier today Review of Systems Review of Systems: All systems reviewed & are unremarkable except as noted in Subjective Physical Exam Physical Exam: Physical Exam: Vitals signs as noted above General Appearance:Morbidly Obese, no apparent distress Head: normocephalic, Atraumatic Eyes: normal inspection, EOMI Neck: supple, Trachea midline Respiratory/Chest: Decreased breath sounds, CTA, No accessory muscle use Cardiovascular: S1, S2, No murmur Abdomen/GI:Soft, Non tender, Bowel sounds present Extremities/Musculoskeletal:normal inspection, no edema Neurologic/Psych:AAOX3, grossly no focal neurological deficits Skin: normal color, warm Results & Data Results & Data ([facility]) Vital Signs (Past 12 Hours) Vital Signs Temp Pulse Pulse Pulse Pulse Pulse Resp 05/01/21 13:35 36.6 C 50 L 18 05/01/21 12:09 70 72 65 62 05/01/21 11:08 36.6 C 50 L 18 05/01/21 06:40 36.7 C 48 L 20 05/01/21 03:35 36.7 C 46 L 20 Resp Resp Resp Resp BP BP Pulse Ox 05/01/21 13:35 130/76 137/82 91 05/01/21 12:09 20 22 20 16 05/01/21 11:08 137/82 91 05/01/21 06:40 161/93 H 97 05/01/21 03:35 156/99 H 96 Pulse Ox Pulse Ox Pulse Ox Pulse Ox 05/01/21 13:35 05/01/21 12:09 94 88 L 96 92 05/01/21 11:08 05/01/21 06:40 05/01/21 03:35 Laboratory Results BMP 05/01/21 06:50 Sodium 138 Potassium 4.3 Chloride 104 Carbon Dioxide 25 BUN 23 Creatinine 0.82 Glucose 228 H Calcium 8.9
--- NOTE | 2021-05-01 17:33 | Discharge Summary ---
Date of Service May 01, 2021 Admission HPI Per Admitting Provider This is a 36yo F with a PMH of asthma, depression and anxiety who presents with worsening SOB. Began feeling poorly on 04/11 with nausea and then developed fever, body aches, dry cough and increased SOB. Positive covid test 04/16. Prescribed azithromycin and dexamethasone course on 04/24/20. Over past day or two, patient has felt significantly more short of breath with short walks or bathing and had to sit down to rest. Home pulse ox reading as low as 79% but ran around 80-85% with exertion and up to 90% at rest. Has history of asthma and has been using inhalers as prescribed. No chills, headache, CP, palpitations, wheezing, N/V, abdominal pain, dysuria, diarrhea or constipation. Admission Exam Per Admitting Provider On examination No apparent distress at rest Hemodynamically stable with blood pressure on the upper side at 149/96 Saturating normally on room air Chestdecreased breath sounds bilaterally HeartS1-S2, regular Abdomenbenign Extremitiestrace edema bilaterally CNSalert, awake and oriented x3 Principal Diagnosis COVID-19 pneumonia Hypoxia Asthma Sinus Bradycardia Discharge Data Allergies Allergy/AdvReac Type Severity Reaction Status Date / Time Penicillins Allergy Mild rash Verified 04/27/21 16:16 potassium Allergy Mild RASH Verified 04/27/21 16:16 Flu Virus Vaccine Allergy Mild rash Uncoded 04/27/21 16:16 Consultations 04/27/21 17:37 ED Decision to Admit Stat 04/29/21 08:00 Consult Cardiology Routine Ordered Studies 04/27/21 16:44 CT angio chest PE protocol Stat Hospital Course (1) Hypoxia: Secondary to his COVID-pneumonia and is complicated by asthma Morbidly obese BMI more than 45 Advised weight management (2) Pneumonia due to COVID-19 virus: Patient is a 36 yr female with a PMH of asthma, depression and anxiety who presents with worsening SOB. Began feeling poorly on 04/11 with nausea and then developed fever, body aches, dry cough and increased SOB in setting of known covid. COVID-19 pneumonia Hypoxia -CTA:No evidence for pulmonary embolus. Moderate multifocal viral pneumonia. Positive covid test 04/16 Prescribed azithromycin and dexamethasone course as outpatient on 04/24/20 CRP 8.91>1.3 Procalcitonin < 0.05 Continue incentive spirometry, supplemental O2. Continue IV steroids Encouraged to prone Lasix as needed 2 step : 2 L with activity Clinically improved (3) Asthma: No wheezing on exam. Continue home inhalers, duoneb Q6H PRN SOB and wheezing On IV Solu-Medrol 40 mg twice daily Transition to p.o. steroids (4) Bradycardia: Noted to be bradycardic with a heart rate is going down as low as upper 30s Asymptomatic Appreciate cardiology input and recommendation Lyme titer negative ? Secondary to Latuda Avoid AV margarette blocking agents (5) Bipolar disorder: Continue Latuda (6) Hypothyroidism: Continue levothyroxine Needs repeat thyroid function tests as outpatient (7) Depression: Management as below (8) Anxiety: Continue paroxetine, clonazepam HS DVT Px: SQ Lovenox Code status: FULL PCP: BRANDON Flaherty Total Time Total Time Spent Total Time Spent (In Minutes): 43 minutes Discharge Plan Discharge Items Patient Disposition: Home - Self-Care Reason For Visit: COVID PNA Discharge Diagnosis: COVID-19 pneumonia Hypoxia Asthma Bradycardia Activity: Per Instructions section Exercise/Sports: Wait until after follow-up appointment Non-emergency contact: Primary Care Provider Call non-emergency contact if: you have any medication questions, your symptoms worsen, your pain is concerning for you and you have a fever Follow-up/Referrals: Demetrice Flaherty CRNP [Primary Care Provider] - 05/05/21 8:30 am Diet: Heart Healthy Addtl Attending Provider Instructions: ---Follow-up with your primary care physician Demetrice TAYLOR on May 05, 2021 at 8:30AM --- Complete the prednisone course as prescribed Start taking prednisone 30 mg daily for 2 days, then 20 mg daily for 2 days, then 10 mg daily for 2 days and stop --- Use oxygen 2 L via nasal cannula with activity as advised. --Hold taking dextroamphetamine/amphetamine until follow up with your Primary Care Physician. Seek immediate medical attention if your symptoms reoccur or worsen Please take all medications as instructed on discharge list below. Please call if you have any questions or problems. You can reach a [facility] hospitalist on duty at [facility] 24 hours a day by calling [phone] Home Isolation COVID-19 Instructions The following information about Home Isolation is from the CDC Website: https://www.cdc.gov/coronavirus/2019-ncov/hcp/lfagdonb-eogxyyh-qncdqh.html Stay home except to get medical care People who are mildly ill with COVID-19 are able to isolate at home during their illness. You should restrict activities outside your home, except for getting medical care. Do not go to work, school, or public areas. Avoid using public transportation, ride-sharing, or taxis. Separate yourself from other people and animals in your home People: As much as possible, you should stay in a specific room and away from other people in your home. Also, you should use a separate bathroom, if available. Animals: You should restrict contact with pets and other animals while you are sick with COVID-19, just like you would around other people. Although there have not been reports of pets or other animals becoming sick with COVID-19, it is still recommended that people sick with COVID-19 limit contact with animals until more information is known about the virus. When possible, have another member of your household care for your animals while you are sick. If you are sick with COVID-19, avoid contact with your pet, including petting, snuggling, being kissed or licked, and sharing food. If you must care for your pet or be around animals while you are sick, wash your hands before and after you interact with pets and wear a face mask. Call ahead before visiting your doctor If you have a medical appointment, call the healthcare provider and tell them that you have or may have COVID-19. This will help the healthcare providers office take steps to keep other people from getting infected or exposed. Wear a face mask You should wear a face mask when you are around other people (e.g., sharing a room or vehicle) or pets and before you enter a healthcare providers office. If you are not able to wear a face mask (for example, because it causes trouble breathing), then people who live with you should not stay in the same room with you, or they should wear a face mask if they enter your room. Cover your coughs and sneezes Cover your mouth and nose with a tissue when you cough or sneeze. Throw used tissues in a lined trash can. Immediately wash your hands with soap and water for at least 20 seconds or, if soap and water are not available, clean your hands with an alcohol-based hand twister in that contains at least 60% alcohol. Clean your hands often Wash your hands often with soap and water for at least 20 seconds, especially after blowing your nose, coughing, or sneezing; going to the bathroom; and before eating or preparing food. If soap and water are not readily available, use an alcohol-based hand twister in with at least 60% alcohol, covering all surfaces of your hands and rubbing them together until they feel dry. Soap and water are the best option if hands are visibly dirty. Avoid touching your eyes, nose, and mouth with unwashed hands. Avoid sharing personal household items You should not share dishes, drinking glasses, cups, eating utensils, towels, or bedding with other people or pets in your home. After using these items, they should be washed thoroughly with soap and water. Clean all high-touch surfaces everyday High touch surfaces include counters, tabletops, doorknobs, bathroom fixtures, toilets, phones, keyboards, tablets, and bedside tables. Also, clean any surfaces that may have blood, stool, or body fluids on them. Use a household cleaning spray or wipe, according to the label instructions. Labels contain in structions for safe and effective use of the cleaning product including precautions you should take when applying the product, such as wearing gloves and making sure you have good ventilation during use of the product. Monitor your symptoms Seek prompt medical attention if your illness is worsening (e.g., difficulty breathing).Beforeseeking care, call your healthcare provider and tell them that you have, or are being evaluated for, COVID-19. Put on a face mask before you enter the facility. These steps will help the healthcare providers office to keep other people in the office or waiting room from getting infected or exposed. Ask your healthcare provider to call the local or state health department. Persons who are placed under active monitoring or facilitated self- monitoring should follow instructions provided by their local health department or occupational health professionals, as appropriate. When working with your local health department check their available hours. If you have a medical emergency and need to call 911, notify the dispatch personnel that you have, or are being evaluated for COVID-19. If possible, put on a face mask before emergency medical services arrive. Discontinuing home isolation Patients with confirmed COVID-19 should remain under home isolation precautions until the risk of secondary transmission to others is thought to be low. The decision to discontinue home isolation precautions should be made on a voah-rv-srlb basis, in consultation with healthcare providers and state and local health departments. Coronavirus disease 2019 (COVID-19) is a virus that causes a respiratory illness. It is caused by a coronavirus called 2019 novel coronavirus (2019- nCoV). There are many types of coronavirus. Coronaviruses are a very common cause of bronchitis. They may sometimes cause lung infection(pneumonia). Symptoms can range from mild to severe respiratory illness. These viruses are also foundin some animals. COVID-19 was first found in people in [facility], in late 2019. In 2020, several cases of COVID-19 have been confirmed in the [place] Public health officials are working to find the source. How the virus spreads is not yet fully known. It may be spread through droplets of fluid that a person coughs or sneezes into the air. It may be spread if you touch a surface with virus on it, such as a handle or object, and then touch your mouth. What are the symptoms of COVID-19? Some people have no symptoms or mild symptoms. Symptoms may appear 2 to 14 days after contact with the virus. Symptoms can include: Fever Coughing Trouble breathing What are possible complications from COVID-19? In many cases, this virus can cause infection (pneumonia) in both lungs. In some cases, this can cause . How is COVID-19 diagnosed? Your healthcare provider will ask about your symptoms. He or she will also ask about your recent travel and contact with sick people. Testing for the virus is only done through the CDC. If yourhealthcare provider thinks you may have COVID- 19, he or she will work with your local health department and the CDC on testing. Follow all instructions from your healthcare provider. COVID-19 is diagnosed by: Nasal and throat swab. A cotton-tipped swab is wiped inside your nose or throat. This is done to check for viruses in your nasal mucus. Sputum culture. A small sample of mucus coughed from your lungs (sputum) is collected if you have a cough. It is checked for the virus. How is COVID-19 treated? There is currently no medicine to treat the virus. Treatment is done to help your body while it fights the virus. This is known as supportive care. Supportive care may include: Pain medicine. These include acetaminophen and ibuprofen. They are used to help ease pain and reduce fever. Bed rest. This helps your body fight the illness. For severe illness, you may need to stay in the hospital. Care during severe illness may include: IV (intravenous) fluids.These are given through a vein to help keep your body hydrated. Oxygen. Supplemental oxygen or ventilation with a breathing machine (ventilator) may be given. This is done to keep enough oxygen in your body. Are you at risk for COVID-19? If youve been to a place where people have been sick with this virus, you are at risk for infection. You are at risk if you: Recently traveled to an affected area Had contact with a sick person who recently traveled to this area Had contact with a person who was diagnosed with COVID-19 How can COVID-19 be prevented? There is no vaccine yet. The best prevention is to not have contact with the virus. The CDC advises that people should not travel to areas where there are COVID-19 outbreaks right now for any reason that is not urgent. To help prevent spreading the infection, wash your hands often, or use an alcohol-basedhand twister in. If you are in an area with COVID-19: Wash your hands often. Or use an alcohol-based hand twister in often. Only touch your eyes, nose, or mouth with clean hands. Dont have contact with people who are sick. Follow local instructions about being in public. For example, you may be told to not use public transport for a period of time. Stay away from markets that have live or animals. Wash your hands after touching any animals. Don't touch animals that may be sick. Dont share eating or drinking tools with sick people. Dont kiss someone who is sick. Clean surfaces often with disinfectant. If you were in an area with COVID-19 in the last 14 days: Call your healthcare provider. He or she can talk with local health staff to see what action may be needed. Follow all instructions from your provider. Take your temperature every morning and evening for at least 14 days. This is to check for fever. Keep a record of the readings. Keep watch for symptoms of the virus. Tell your provider right away if you have symptoms. If you were in an area with COVID-19 and have a fever or other symptoms: Dont panic. Keep in mind that other illnesses can cause similar symptoms. Stay away from work, school, and public places. Limit physical contact with family members. Don't kiss anyone or share eating or drinking utensils. Clean surfaces you touch with disinfectant. This is to help prevent the virus from spreading. Call your healthcare provider. Explain that you have been exposed to COVID-19 and have symptoms. Do this before going to any hospital. Wait for instructions. Keep in mind that healthcare staff may wear protective equipment such as masks, gowns, gloves, and eye protection. You may be put in a separate room. This is to prevent the possible virus from spreading. Tell the healthcare staff about recent travel. This includes local travel on public transport. Staff may need to find other people you have been in contact with. Follow all instructions the healthcare staff give you. If you have been diagnosed with COVID-19 Follow all instructions from your healthcare provider. Dont leave your home, except to get medical care. Call your healthcare providers office before going. They can prepare and give you instructions. This will help prevent the virus from spreading. Dont go to work, school, or public areas. Dont use public transport or taxis. Stay away from other people in your home. Have them wear face masks around you. Dont share household items or food. Wear a face mask if you can. This includes at home or in a medical facility. Cover your face with a tissue when you cough or sneeze. Throw the tissue away. Wash your hands. Wash your hands often. Caregivers should: Follow all instructions from healthcare staff. Wear a face mask and protective clothing as advised. Wash hands often. Keep track of the sick persons symptoms. Clean surfaces, fabrics, and laundry thoroughly. Keep other people away from the sick person. When to call your healthcare provider Call your healthcare provider: If youve recently traveled and have symptoms If you have been diagnosed with COVID-19 and your symptoms are worse To learn more To find out more about COVID-19, visit the CDC website at www.cdc.gov/coronavirus/2019-ncov/index.html. [employer]. [address] [place] [address], [place] [address]. All rights reserved. This information is not intended as a substitute for professional medical care. Always follow your healthcare professional's instructions. This information has been adapted from [employer] Pending Studies at Discharge: No Stand-Alone Forms: My [facility], Smoking Cessation Medications and DC Order Prescriptions: New prednisone 10 mg tablet 10 mg PO UD Qty: 12 RF: 0 Continued celecoxib 200 mg capsule 200 mg PO BID RF: 0 fluticasone propion-salmeterol [Advair Diskus] 250-50 mcg/dose Blister With Device 1 inh INHALATION BID RF: 0 ipratropium-albuterol 0.5 mg-3 mg(2.5 mg base)/3 mL solution for nebulization 3 ml INHALATION Q4H PRN (Reason: Shortness Of Breath Or Wheezing) RF: 0 dextroamphetamine-amphetamine 10 mg tablet 10 mg PO QPM RF: 0 clonazepam 1 mg tablet 2 mg PO HS RF: 0 omeprazole 40 mg capsule,delayed release(DR/EC) 40 mg PO HS RF: 0 levothyroxine [Euthyrox] 25 mcg tablet 25 mcg PO QAM RF: 0 dextroamphetamine-amphetamine 20 mg capsule,extended release 24hr 20 mg PO QAM RF: 0 paroxetine HCl 20 mg tablet 20 mg PO HS RF: 0 zafirlukast 20 mg tablet 20 mg PO BID RF: 0 hydrocodone-chlorpheniramine 10-8 mg/5 mL suspension,extended rel 12 hr 5 ml PO Q12H PRN (Reason: Cough) RF: 0 levocetirizine 5 mg tablet 5 mg PO HS RF: 0 Latuda 80 mg tablet 80 mg PO HS RF: 0 Discontinued dexamethasone 2 mg tablet 0 mg PO DAILY RF: 0 azithromycin 500 mg tablet 500 mg PO DAILY RF: 0 Discharge Orders: Discharge Order (Routine); Ordered 05/01/21 Ordered By: Nilesh Dubois Admission Data Admit Date/Time: 04/27/21 18:24 Attending Provider: Nilesh Dubois Admit Provider: Martínez Salguero Primary Care Provider: Demetrice Flaherty Other Providers: Martínez Salguero ; Douglas Thomas ; Breezy Cazares ; Eliud Rowland ; Colton Ramos ; Jacob Vuong ; Bucky Rodriguez ; Gwen Gifford ; Kinza Whitehead ; Alexus Bedoya. ; Rodriguez Maurer Other Interventions: Discharge Summary Assessment (RN) Last Done: 05/01/21 13:35
[2021-05-05 11:37] LABS: C Reactive Protein 1.31 mg/dl (0-0.5)
== END 2021-05-01 16:45 | disposition home or self-care (01) | DRG 177 ==
LOC: ED 15:07 → EDINP 18:24 → SUATTDRO 18:24 → 2W 04-28 15:46